=== PATIENT | female | born 1960 | race Caucasian/White ===

== ENCOUNTER → 2016-03-27 | Outpatient (CLI) | payer BC ==
--- NOTE | 2016-03-27 16:49 | US ---
EXAMINATION TYPE: US venous doppler duplex LE LT DATE OF EXAM: 03/27/2016 4:15 PM COMPARISON: NONE CLINICAL HISTORY: L Leg Pain M79.662, R22.42 Ankle Swelling L Leg. redness to left lower leg with iy n x 3 days SIDE PERFORMED: VESSELS IMAGED: Common Femoral Vein Deep Femoral Vein Greater Saphenous Vein * Femoral Vein Popliteal Vein Proximal Calf Veins (* superficial vessels) TECHNOLOGIST IMPRESSION: Left Leg: Negative for DVT. Edema channels are noted at ankle swelling. Tech findings called to Arlene logan at [facility] at exam's end. Satisfactory color flow, phasicity, and compressibility is seen in the left lower extremity at the ab ove levels. Last few images scanning of left ankle show mild to moderate subcutaneous edema. IMPRESSION: No ultrasound evidence for acute DVT in the left lower extremity.
== END | disposition home or self-care (01) ==
LOC: RADUSWWP 15:44
PROVIDERS: ATTEND Internal Medicine
DX: M79.662 Pain in left lower leg (principal); R22.42 Localized swelling, mass and lump, left lower limb

== ENCOUNTER → 2016-10-20 | Outpatient (CLI) | payer BC ==
--- NOTE | 2016-10-20 10:06 | US ---
EXAMINATION TYPE: US venous doppler duplex LE DATE OF EXAM: 10/20/2016 9:36 AM COMPARISON: NONE CLINICAL HISTORY: M79.662 Pain Left M79.661 Pain Right. Non healing wound on left leg, leg swelling a nd pain, no h/o dvt SIDE PERFORMED: Bilateral TECHNIQUE: The lower extremity deep venous system is examined utilizing real time linear array sonog omar with graded compression, doppler sonography and color-flow sonography. VESSELS IMAGED: External Iliac Vein (EIV) Common Femoral Vein Deep Femoral Vein Greater Saphenous Vein * Femoral Vein Popliteal Vein Small Saphenous Vein * Proximal Calf Veins (* superficial vessels) Right Leg: Appears negative for DVT Left Leg: Appears negative for DVT IMPRESSION: 1. No ultrasound evidence deep venous thrombosis bilateral lower extremities.
== END | disposition home or self-care (01) ==
LOC: RADUSWWP 08:57
PROVIDERS: ATTEND Internal Medicine
DX: M79.662 Pain in left lower leg (principal); M79.661 Pain in right lower leg; R22.42 Localized swelling, mass and lump, left lower limb; R22.41 Localized swelling, mass and lump, right lower limb
CPT/HCPCS: 93970

== ENCOUNTER 2017-03-08 15:22 | Inpatient (IN) | payer BC ==
[2017-03-08] MEDS ORDERED: SODIUM CHLORIDE 0.9% 1,000 ML IV ONE (15:37)
--- NOTE | 2017-03-08 15:44 | ED ---
General Adult HPI - General Chief complaint: Altered Mental Status Stated complaint: Alterd Mental State Time Seen by Provider: 03/08/17 15:30 Source: patient, family, RN notes reviewed, old records reviewed Mode of arrival: wheelchair Limitations: altered mental status - History of Present Illness Initial comments: 56-year-old female history of diabetes, congestive heart failure presenting for evaluation of altered mental status, confusion and multiple falls. Patient is accompanied by her states patient fell on Sunday striking the left side of her head, unknown if she lost consciousness or not. Patient was overall in her usual state of health yesterday, today she became more weak, had multiple additional falls. She is complaining of low back pain. The time my evaluation. Patient denies fever or chills. She denies chest pain or shortness of breath. Denies nausea vomiting or diarrhea. She has bilateral lower extremity swelling and erythema which is improved according to the patient. No dysuria. No headache. - Related Data Home Medications Medication Instructions Recorded Confirmed Amitriptyline HCl [Elavil] 100 mg PO HS 12/15/13 03/08/17 Insulin NPH Human Isophane 102 unit SQ HS 12/15/13 03/08/17 [humuLIN N] Nabumetone [Relafen] 500 mg PO BID 12/15/13 03/08/17 metFORMIN HCL [Glucophage] 500 mg PO BID 12/15/13 03/08/17 Cyclobenzaprine [Flexeril] 10 mg PO TID PRN 03/08/17 03/08/17 Diazepam [Valium] 5 - 10 mg PO BID PRN 03/08/17 03/08/17 Empagliflozin/Linagliptin 1 tab PO DAILY 03/08/17 03/08/17 [Glyxambi 10 mg-5 mg Tablet] Enalapril Maleate [Vasotec] 20 mg PO BID 03/08/17 03/08/17 Furosemide [Lasix] 20 mg PO DAILY 03/08/17 03/08/17 Levocetirizine Dihydrochloride 5 mg PO DAILY 03/08/17 03/08/17 Meclizine [Antivert] 6.25 - 12.5 mg PO TID PRN 03/08/17 03/08/17 Nitroglycerin Sl Tabs [Nitrostat] 0.4 mg SUBLINGUAL Q5M PRN 03/08/17 03/08/17 Pantoprazole Sodium [Protonix] 40 mg PO DAILY 03/08/17 03/08/17 Pregabalin [Lyrica] 100 mg PO BID 03/08/17 03/08/17 Zolpidem [Ambien] 10 mg PO HS PRN 03/08/17 03/08/17 traZODone HCL [Desyrel] 100 mg PO HS 03/08/17 03/08/17 Allergies Allergy/AdvReac Type Severity Reaction Status Date / Time No Known Allergies Allergy Verified 03/08/17 16:12 Review of Systems ROS Statement: Those systems with pertinent positive or pertinent negative responses have been documented in the HPI. ROS Other: All systems not noted in ROS Statement are negative. Past Medical History Past Medical History: Heart Failure, Diabetes Mellitus, Hypertension Additional Past Medical History / Comment(s): chronic leg wounds History of Any Multi-Drug Resistant Organisms: None Reported Past Surgical History: Appendectomy, Section, Hernia Repair, Hysterectomy, Orthopedic Surgery, Tubal Ligation Additional Past Surgical History / Comment(s): toe removal Past Anesthesia/Blood Transfusion Reactions: No Reported Reaction Past Psychological History: Anxiety Smoking Status: Current every day smoker Past Alcohol Use History: None Reported Past Drug Use History: None Reported - Past Family History Mother Family Medical History: Diabetes Mellitus Father Family Medical History: Diabetes Mellitus Brother(s) Family Medical History: Cancer, Diabetes Mellitus General Exam Limitations: altered mental status General appearance: alert, in no apparent distress Head exam: Present: normocephalic, other (Abrasion on the left periorbital region) Eye exam: Present: normal appearance, PERRL ENT exam: Present: mucous membranes dry Neck exam: Present: normal inspection. Absent: tenderness, meningismus Respiratory exam: Present: normal lung sounds bilaterally. Absent: respiratory distress Cardiovascular Exam: Present: regular rate, normal rhythm GI/Abdominal exam: Present: soft, distended. Absent: tenderness, guarding, rebound Extremities exam: Present: pedal edema, other (Bilateral chronic venous stasis, 2+ pitting edema) Back exam: Present: tenderness, paraspinal tenderness, vertebral tenderness ( Both paraspinal and vertebral tenderness on the lumbar region.) Neurological exam: Present: alert, oriented X3, CN II-XII intact. Absent: motor sensory deficit Psychiatric exam: Present: normal affect, normal mood Skin exam: Present: warm, dry, intact, normal color. Absent: cyanosis, diaphoretic Course Vital Signs 03/08/17 03/08/17 03/08/17 15:30 16:33 17:00 Temperature 98.5 F 98.7 F Pulse Rate 98 90 94 Respiratory 18 20 18 Rate Blood Pressure 144/79 138/70 139/74 O2 Sat by Pulse 94 L 96 98 Oximetry 03/08/17 18:41 Temperature 97.7 F Pulse Rate 93 Respiratory 20 Rate Blood Pressure 153/91 O2 Sat by Pulse 97 Oximetry EKG Findings - EKG Comments: EKG Findings:: EKG shows normal sinus rhythm, ventricular rate 94, P or 162, QRS duration 84, QTC 475, no ST segment elevation or depression Medical Decision Making - Medical Decision Making 56 female presenting with confusion, multiple falls. Patient does report cough. Chest x-rays obtained, there is a bilateral pneumonia. CT of the brain negative for acute intracranial her ability, CT of C-spine is negative for fracture subluxation, x-ray of the lumbar spine and pelvis are negative. White blood cell count normal 9.6, hemoglobin 13.2. Troponin normal limits. Influenza negative. BNP normal 100. Urinalysis shows 112 RBCs, 74 WBCs, blood culture urine culture are pending. Patient was started on antibiotics for both UTI and bradycardic pneumonia. - Lab Data Result diagrams: 03/08/17 15:45 03/08/17 15:45 Lab Results 03/08/17 03/08/17 03/08/17 Range/Units 15:45 15:45 15:45 WBC 9.6 (3.8-10.6) k/uL RBC 4.26 (3.80-5.40) m/uL Hgb 13.2 (11.4-16.0) gm/dL Hct 40.6 (34.0-46.0) % MCV 95.4 (80.0-100.0) fL MCH 31.1 (25.0-35.0) pg MCHC 32.5 (31.0-37.0) g/dL RDW 15.6 H (11.5-15.5) % Plt Count 313 (150-450) k/uL Neutrophils % 70 % Lymphocytes % 20 % Monocytes % 6 % Eosinophils % 2 % Basophils % 0 % Neutrophils # 6.7 (1.3-7.7) k/uL Lymphocytes # 1.9 (1.0-4.8) k/uL Monocytes # 0.5 (0-1.0) k/uL Eosinophils # 0.2 (0-0.7) k/uL Basophils # 0.0 (0-0.2) k/uL PT (9.0-12.0) sec INR (<1.2) APTT (22.0-30.0) sec Sodium 140 (137-145) mmol/L Potassium 3.6 (3.5-5.1) mmol/L Chloride 99 (98-107) mmol/L Carbon Dioxide 28 (22-30) mmol/L Anion Gap 13 mmol/L BUN 22 H (7-17) mg/dL Creatinine 0.54 (0.52-1.04) mg/dL Est GFR (MDRD) Af Amer >60 (>60 ml/min/1.73 sqM) Est GFR (MDRD) Non-Af >60 (>60 ml/min/1.73 sqM) Glucose 134 H (74-99) mg/dL POC Glucose (mg/dL) (75-99) mg/dL POC Glu Tightener ID Plasma Lactic Acid Tyrell (0.7-2.0) mmol/L Calcium 9.7 (8.4-10.2) mg/dL Total Bilirubin 0.4 (0.2-1.3) mg/dL AST 67 H (14-36) U/L ALT 40 (9-52) U/L Alkaline Phosphatase 126 (38-126) U/L Total Creatine Kinase 1001 H (30-135) U/L CK-MB (CK-2) 35.0 H* (0.0-2.4) ng/mL CK-MB (CK-2) Rel Index 3.5 Troponin I <0.012 (0.000-0.034) ng/mL NT-Pro-B Natriuret Pep pg/mL Total Protein 7.5 (6.3-8.2) g/dL Albumin 4.0 (3.5-5.0) g/dL Urine Color Urine Appearance (Clear) Urine pH (5.0-8.0) Ur Specific Jefferson (1.001-1.035) Urine Protein (Negative) Urine Glucose (UA) (Negative) Urine Ketones (Negative) Urine Blood (Negative) Urine Nitrite (Negative) Urine Bilirubin (Negative) Urine Urobilinogen (<2.0) mg/dL Ur Leukocyte Esterase (Negative) Urine RBC (0-5) /hpf Urine WBC (0-5) /hpf Urine WBC Clumps (None) /hpf Ur Renal Epithelial Cell (0) /hpf Urine Bacteria (None) /hpf Urine Mucus (None) /hpf Urine Yeast (Budding) (None) /hpf Urine Opiates Screen (NotDetected) Ur Oxycodone Screen (NotDetected) Urine Methadone Screen (NotDetected) Ur Propoxyphene Screen (NotDetected) Ur Barbiturates Screen (NotDetected) U Tricyclic Antidepress (NotDetected) Ur Phencyclidine Scrn (NotDetected) Ur Amphetamines Screen (NotDetected) U Methamphetamines Scrn (NotDetected) U Benzodiazepines Scrn (NotDetected) Urine Cocaine Screen (NotDetected) U Marijuana (THC) Screen (NotDetected) Influenza Type A RNA (Not Detectd) Influenza Type B (PCR) (Not Detectd) 03/08/17 03/08/17 03/08/17 Range/Units 15:45 15:45 15:45 WBC (3.8-10.6) k/uL RBC (3.80-5.40) m/uL Hgb (11.4-16.0) gm/dL Hct (34.0-46.0) % MCV (80.0-100.0) fL MCH (25.0-35.0) pg MCHC (31.0-37.0) g/dL RDW (11.5-15.5) % Plt Count (150-450) k/uL Neutrophils % % Lymphocytes % % Monocytes % % Eosinophils % % Basophils % % Neutrophils # (1.3-7.7) k/uL Lymphocytes # (1.0-4.8) k/uL Monocytes # (0-1.0) k/uL Eosinophils # (0-0.7) k/uL Basophils # (0-0.2) k/uL PT 10.5 (9.0-12.0) sec INR 1.1 (<1.2) APTT 23.5 (22.0-30.0) sec Sodium (137-145) mmol/L Potassium (3.5-5.1) mmol/L Chloride (98-107) mmol/L Carbon Dioxide (22-30) mmol/L Anion Gap mmol/L BUN (7-17) mg/dL Creatinine (0.52-1.04) mg/dL Est GFR (MDRD) Af Amer (>60 ml/min/1.73 sqM) Est GFR (MDRD) Non-Af (>60 ml/min/1.73 sqM) Glucose (74-99) mg/dL POC Glucose (mg/dL) (75-99) mg/dL POC Glu Tightener ID Plasma Lactic Acid Tyrell 1.2 (0.7-2.0) mmol/L Calcium (8.4-10.2) mg/dL Total Bilirubin (0.2-1.3) mg/dL AST (14-36) U/L ALT (9-52) U/L Alkaline Phosphatase (38-126) U/L Total Creatine Kinase (30-135) U/L CK-MB (CK-2) (0.0-2.4) ng/mL CK-MB (CK-2) Rel Index Troponin I (0.000-0.034) ng/mL NT-Pro-B Natriuret Pep pg/mL Total Protein (6.3-8.2) g/dL Albumin (3.5-5.0) g/dL Urine Color Urine Appearance (Clear) Urine pH (5.0-8.0) Ur Specific Jefferson (1.001-1.035) Urine Protein (Negative) Urine Glucose (UA) (Negative) Urine Ketones (Negative) Urine Blood (Negative) Urine Nitrite (Negative) Urine Bilirubin (Negative) Urine Urobilinogen (<2.0) mg/dL Ur Leukocyte Esterase (Negative) Urine RBC (0-5) /hpf Urine WBC (0-5) /hpf Urine WBC Clumps (None) /hpf Ur Renal Epithelial Cell (0) /hpf Urine Bacteria (None) /hpf Urine Mucus (None) /hpf Urine Yeast (Budding) (None) /hpf Urine Opiates Screen (NotDetected) Ur Oxycodone Screen (NotDetected) Urine Methadone Screen (NotDetected) Ur Propoxyphene Screen (NotDetected) Ur Barbiturates Screen (NotDetected) U Tricyclic Antidepress (NotDetected) Ur Phencyclidine Scrn (NotDetected) Ur Amphetamines Screen (NotDetected) U Methamphetamines Scrn (NotDetected) U Benzodiazepines Scrn (NotDetected) Urine Cocaine Screen (NotDetected) U Marijuana (THC) Screen (NotDetected) Influenza Type A RNA Not Detected (Not Detectd) Influenza Type B (PCR) Not Detected (Not Detectd) 03/08/17 03/08/17 03/08/17 Range/Units 15:45 15:51 16:30 WBC (3.8-10.6) k/uL RBC (3.80-5.40) m/uL Hgb (11.4-16.0) gm/dL Hct (34.0-46.0) % MCV (80.0-100.0) fL MCH (25.0-35.0) pg MCHC (31.0-37.0) g/dL RDW (11.5-15.5) % Plt Count (150-450) k/uL Neutrophils % % Lymphocytes % % Monocytes % % Eosinophils % % Basophils % % Neutrophils # (1.3-7.7) k/uL Lymphocytes # (1.0-4.8) k/uL Monocytes # (0-1.0) k/uL Eosinophils # (0-0.7) k/uL Basophils # (0-0.2) k/uL PT (9.0-12.0) sec INR (<1.2) APTT (22.0-30.0) sec Sodium (137-145) mmol/L Potassium (3.5-5.1) mmol/L Chloride (98-107) mmol/L Carbon Dioxide (22-30) mmol/L Anion Gap mmol/L BUN (7-17) mg/dL Creatinine (0.52-1.04) mg/dL Est GFR (MDRD) Af Amer (>60 ml/min/1.73 sqM) Est GFR (MDRD) Non-Af (>60 ml/min/1.73 sqM) Glucose (74-99) mg/dL POC Glucose (mg/dL) 145 H (75-99) mg/dL POC Glu Tightener ID Henrietta Ascencio Plasma Lactic Acid Tyrell (0.7-2.0) mmol/L Calcium (8.4-10.2) mg/dL Total Bilirubin (0.2-1.3) mg/dL AST (14-36) U/L ALT (9-52) U/L Alkaline Phosphatase (38-126) U/L Total Creatine Kinase (30-135) U/L CK-MB (CK-2) (0.0-2.4) ng/mL CK-MB (CK-2) Rel Index Troponin I (0.000-0.034) ng/mL NT-Pro-B Natriuret Pep 100 pg/mL Total Protein (6.3-8.2) g/dL Albumin (3.5-5.0) g/dL Urine Color Yellow Urine Appearance Turbid H (Clear) Urine pH 5.0 (5.0-8.0) Ur Specific Jefferson 1.014 (1.001-1.035) Urine Protein 1+ H (Negative) Urine Glucose (UA) 4+ H (Negative) Urine Ketones Trace H (Negative) Urine Blood Small H (Negative) Urine Nitrite Negative (Negative) Urine Bilirubin Negative (Negative) Urine Urobilinogen <2.0 (<2.0) mg/dL Ur Leukocyte Esterase Large H (Negative) Urine RBC 112 H (0-5) /hpf Urine WBC 74 H (0-5) /hpf Urine WBC Clumps Many H (None) /hpf Ur Renal Epithelial Cell 394 (0) /hpf Urine Bacteria Many H (None) /hpf Urine Mucus Many H (None) /hpf Urine Yeast (Budding) Many H (None) /hpf Urine Opiates Screen Not Detected (NotDetected) Ur Oxycodone Screen Not Detected (NotDetected) Urine Methadone Screen Not Detected (NotDetected) Ur Propoxyphene Screen Not Detected (NotDetected) Ur Barbiturates Screen Not Detected (NotDetected) U Tricyclic Antidepress Detected H (NotDetected) Ur Phencyclidine Scrn Not Detected (NotDetected) Ur Amphetamines Screen Not Detected (NotDetected) U Methamphetamines Scrn Not Detected (NotDetected) U Benzodiazepines Scrn Detected H (NotDetected) Urine Cocaine Screen Not Detected (NotDetected) U Marijuana (THC) Screen Not Detected (NotDetected) Influenza Type A RNA (Not Detectd) Influenza Type B (PCR) (Not Detectd) Disposition Clinical Impression: Community acquired pneumonia, UTI (urinary tract infection), Altered mental status Disposition: ADMITTED IP TO THIS [facility] Condition: Stable Referrals: Jad John MD [Primary Care Provider] - 1-2 days Decision to Admit Reason: Admit from EC Decision Date: 03/08/17 Decision Time: 19:18
[2017-03-08] MEDS ORDERED: SODIUM CHLORIDE 0.9% 250 ML IV ONE (15:45)
[2017-03-08 15:52] LABS: Glucose,Whole Blood 145 mg/dL (75-99)
[2017-03-08 16:04] LABS: Basophils % (A) 0 %; Eosinophils # (A) 0.2 k/uL (0-0.7); Eosinophils % (A) 2 %; HCT 40.6 % (34.0-46.0); HGB 13.2 gm/dL (11.4-16.0); Lymphocytes # (A) 1.9 k/uL (1.0-4.8); Lymphocytes % (A) 20 %; MCH 31.1 pg (25.0-35.0); MCHC 32.5 g/dL (31.0-37.0); MCV 95.4 fL (80.0-100.0); Mean Platelet Volume 7.3; Monocytes # (A) 0.5 k/uL (0-1.0); Monocytes % (A) 6 %; Neutrophils # (A) 6.7 k/uL (1.3-7.7); Neutrophils % (A) 70 %; Platelet Count 313 k/uL (150-450); RBC 4.26 m/uL (3.80-5.40); RDW 15.6 % (11.5-15.5); WBC 9.6 k/uL (3.8-10.6)
[2017-03-08 16:13] LABS: INR 1.1 (<1.2); Partial Thromboplastin Time 23.5 sec (22.0-30.0); Prothrombin Time 10.5 sec (9.0-12.0)
[2017-03-08 16:16] LABS: ALT 40 U/L (9-52); AST 67 U/L (14-36); Alkaline Phosphatase 126 U/L (38-126); Anion Gap 13 mmol/L; Blood Urea Nitrogen 22 mg/dL (7-17); Calcium 9.7 mg/dL (8.4-10.2); Carbon Dioxide 28 mmol/L (22-30); Chloride 99 mmol/L (98-107); Glucose 134 mg/dL (74-99); Potassium 3.6 mmol/L (3.5-5.1); Sodium 140 mmol/L (137-145); Total Bilirubin 0.4 mg/dL (0.2-1.3); Total Protein 7.5 g/dL (6.3-8.2)
--- NOTE | 2017-03-08 16:17 | XR ---
EXAMINATION TYPE: XR chest 2V DATE OF EXAM: 03/08/2017 COMPARISON: 05/23/2014 HISTORY: Shortness of breath TECHNIQUE: Frontal and lateral views of the chest are obtained. FINDINGS: Scattered senescent parenchymal changes noted. Patchy perihilar infiltrates right greater than left which may reflect bilateral pneumonia. Acute pul monary edema is less likely although not entirely excluded. Correlate clinically. Heart size is stable. Mediastinal structures are stable and grossly unremarkable. No evidence for hilar prominence. Degenerative changes dorsal spine. IMPRESSION: 1. Patchy perihilar infiltrates right greater than left which may reflect bilateral pneumonia. Acute pulmonary edema is less likely although not entirely excluded. Correlate clinically.
--- NOTE | 2017-03-08 16:20 | XR ---
EXAMINATION TYPE: XR lumbar spine 2 or 3V, XR pelvis AP view DATE OF EXAM: 03/08/2017 CLINICAL HISTORY: pain TECHNIQUE: Three views of the lumbar spine are submitted. COMPARISON: None. FINDINGS: There are 5 lumbar type vertebral bodies identified. The lumbar spine shows satisfactory alignment w ithout evidence of acute fracture or dislocation. Vertebral body heights are within normal limits. Moderate degenerative narrowing at L3-4 and to a lesser extent L4-5 and L5-S1. Retrolisthesis of L3 o n L4 measuring 5 mm. Moderate lower lumbar facet joint arthropathy. The overlying soft tissue appear s unremarkable. IMPRESSION: No acute fracture is seen in the lumbar spine. Retrolisthesis L3 on L4. ICD 10 NO FRACTURE, INITIAL EVALUATION EXAMINATION TYPE: XR lumbar spine 2 or 3V, XR pelvis AP view DATE OF EXAM: 03/08/2017 CLINICAL HISTORY: pain TECHNIQUE: Single view the pelvis is submitted. FINDINGS: No evidence for fracture, dislocation or bony lesion. Joint spaces are well-preserved. S I joints appear symmetric. IMPRESSION: 1. No acute fracture or dislocation seen. ICD 10 NO FRACTURE, INITIAL EVALUATION
[2017-03-08 16:21] LABS: Creatine Kinase 1001 U/L (30-135)
[2017-03-08 16:33] LABS: Troponin I <0.012 ng/mL (0.000-0.034)
[2017-03-08] MEDS: SODIUM CHLORIDE 0.9% 250 ML IV SCH ×9 (16:46→23:07)
[2017-03-08 16:47] LABS: Appearance,Urine Turbid (Clear); Bacteria,Urine Many /hpf; Bilirubin,Urine Negative (Negative); Blood,Urine Small (Negative); Budding Yeast,Urine Many /hpf; Color,Urine Yellow; Glucose,Urine (UA) 4+ (Negative); Ketones,Urine Trace (Negative); Leukocyte Esterase,Urine Large (Negative); Mucus,Urine Many /hpf; Nitrite,Urine Negative (Negative); Protein,Urine 1+ (Negative); RBC,Urine 112 /hpf (0-5); Renal Epithelial Cells,Urine 394 /hpf (0); Specific Gravity,Urine 1.014 (1.001-1.035); Urobilinogen,Urine <2.0 mg/dL (<2.0); WBC,Urine 74 /hpf (0-5)
[2017-03-08 17:15] LABS: Amphetamine Screen,Urine Not Detected (NotDetected); Barbiturate Screen,Urine Not Detected (NotDetected); Benzodiazepines Screen,Urine Detected (NotDetected); Cocaine Screen,Urine Not Detected (NotDetected); Methadone Screen, Urine Not Detected (NotDetected); Opiate Screen,Urine Not Detected (NotDetected); Oxycodone Screen, Urine Not Detected (NotDetected); Phencyclidine Screen,Urine Not Detected (NotDetected); Tricyclic Antidepressant,Urine Detected (NotDetected); Urn Cannabinoid Scrn Not Detected (NotDetected)
--- NOTE | 2017-03-08 18:10 | CT ---
EXAMINATION TYPE: CT brain [facility] DATE OF EXAM: 03/08/2017 COMPARISON: Brain CT 12/15/2013 HISTORY: Per patient family multiple falls and mental status changes CT DLP: 1792.9 mGycm Automated exposure control for dose reduction was used. TECHNIQUE: CT scan of the head and cervical spine are performed without contrast. FINDINGS: Ventricles have normal size. There is no mass effect nor midline shift. There is no sign of intracranial hemorrhage. The calvarium is intact. There is mucosal thickening in the paranasal sin uses and more noticeable in the sphenoid sinuses. There is some straightening of the cervical spine. There is moderate narrowing at C5-6 disc space wit h some spurring of the endplates. There is multilevel hypertrophic cervical facet arthropathy. The sk ull base is intact. I see no fracture. I see no focal bony destructive process. IMPRESSION: There is pansinusitis similar to old exam. No acute intracranial abnormality. Spondylotic changes in the cervical spine and more noticeable at C5-6. No fracture.
[2017-03-08] MEDS ORDERED: AZITHROMYCIN 500 MG in SODIUM CHLORIDE 0.9% 250 ML IVPB STA (18:27)
[2017-03-08] MEDS ORDERED: cefTRIAXone IN SWFI 1,000 MG/10 ML SYRINGE IVP STA (18:28)
[2017-03-08] MEDS ORDERED: HYDROcodone/APAP 5-325MG 1 EACH TAB PO STA (19:00)
[2017-03-08] MEDS ORDERED: NALOXONE 0.4 MG/ML 1 ML VIAL IV PRN (19:14)
[2017-03-08] MEDS ORDERED: ACETAMINOPHEN TAB 325 MG TAB PO PRN (19:14)
[2017-03-08] MEDS ORDERED: IBUPROFEN 400 MG TAB PO PRN (19:14)
[2017-03-08] MEDS ORDERED: SODIUM CHLORIDE 0.9% 1,000 ML IV SCH (20:15)
[2017-03-08 22:06] LABS: Glucose,Whole Blood 131 mg/dL (75-99)
[2017-03-08] MEDS: LISINOPRIL 20 MG TAB PO SCH (22:54)
[2017-03-08] MEDS: metFORMIN 500 MG TAB PO SCH (22:55)
[2017-03-09] MEDS: HYDROmorphone 0.5 MG/0.5 ML SYRINGE IVP PRN ×2 (02:36→06:00)
[2017-03-09 08:00] LABS: Glucose,Whole Blood 127 mg/dL (75-99)
[2017-03-09] MEDS: cefTRIAXone IN SWFI 1,000 MG/10 ML SYRINGE IVP SCH (08:09)
[2017-03-09] MEDS: metFORMIN 500 MG TAB PO SCH (08:09)
[2017-03-09] MEDS: LISINOPRIL 20 MG TAB PO SCH (08:09)
[2017-03-09] MEDS ORDERED: NITROGLYCERIN SL TABS 0.4 MG TAB SUBLINGUAL PRN (08:26)
[2017-03-09] MEDS ORDERED: DIAZEPAM 5 MG TAB PO PRN (08:26)
--- NOTE | 2017-03-09 08:53 | P.HPIM ---
History of Present Illness Patient is 56-year-old female came in with the falls generalized weakness and a pO2 be multifactorial. Patient is complaining of cough denied without any significant sputum production any fever chills doesn't have any leukocytosis incidentally found to have infiltrate in the right middle and lower lung li. The denied any dysuria urinary frequency suprapubic pain abdominal pain. Patient has bilateral pedal edema chronic venous stasis dermatitis at this without any cellulitis patient was started on Rocephin and azithromycin admitted. Patient is on multiple medications that can lead to falls including trazodone and Ambien and diazepam cyclobenzaprine. Patient was told she has congestive heart failure although previous echocardiogram from 2014 showed normal ejection fraction patient is hypotensive as well. We'll repeat an echocardiogram patient will be continued on antibiotics IV fluids will be discontinued with concern of her heart failure history may have diastolic dysfunction although her EF is essentially within normal limits as mentioned above. Physical therapy and occupational therapy evaluation I cannot disprove pneumonia at this time because of which I'm continuing antibiotics. Review of Systems REVIEW OF SYSTEMS: CONSTITUTIONAL: As mentioned in HPI HEENT: No recent visual problems or hearing problems. Denied any sore throat. CARDIOVASCULAR: No chest pain, orthopnea, PND, no palpitations, no syncope. PULMONARY: No shortness of breath, no cough, no hemoptysis. GASTROINTESTINAL: No diarrhea, no nausea, no vomiting, no abdominal pain. Normoactive bowel sounds. NEUROLOGICAL: No headaches, no weakness, no numbness. HEMATOLOGICAL: Denies any bleeding or petechiae. GENITOURINARY: Denies any burning micturition, frequency, or urgency. MUSCULOSKELETAL/RHEUMATOLOGICAL: Denies any joint pain, swelling, or any muscle pain. ENDOCRINE: Denies any polyuria or polydipsia. The rest of the 14-point review of systems is negative. Past Medical History Past Medical History: Heart Failure, Diabetes Mellitus, Hypertension Additional Past Medical History / Comment(s): chronic leg wounds History of Any Multi-Drug Resistant Organisms: None Reported Past Surgical History: Appendectomy, Section, Hernia Repair, Hysterectomy, Orthopedic Surgery, Tubal Ligation Additional Past Surgical History / Comment(s): right third toe removal; shoulder repain surgery Past Anesthesia/Blood Transfusion Reactions: No Reported Reaction Past Psychological History: Anxiety Smoking Status: Current every day smoker Past Alcohol Use History: None Reported Past Drug Use History: None Reported - Past Family History Mother Family Medical History: Diabetes Mellitus Father Family Medical History: Diabetes Mellitus Brother(s) Family Medical History: Cancer, Diabetes Mellitus Medications and Allergies Home Medications Medication Instructions Recorded Confirmed Type Amitriptyline HCl [Elavil] 100 mg PO HS 12/15/13 03/08/17 History Insulin NPH Human Isophane 102 unit SQ HS 12/15/13 03/08/17 History [humuLIN N] Nabumetone [Relafen] 500 mg PO BID 12/15/13 03/08/17 History metFORMIN HCL [Glucophage] 500 mg PO BID 12/15/13 03/08/17 History Cyclobenzaprine [Flexeril] 10 mg PO TID PRN 03/08/17 03/08/17 History Diazepam [Valium] 5 - 10 mg PO BID PRN 03/08/17 03/08/17 History Empagliflozin/Linagliptin 1 tab PO DAILY 03/08/17 03/08/17 History [Glyxambi 10 mg-5 mg Tablet] Enalapril Maleate [Vasotec] 20 mg PO BID 03/08/17 03/08/17 History Furosemide [Lasix] 20 mg PO DAILY 03/08/17 03/08/17 History Levocetirizine Dihydrochloride 5 mg PO DAILY 03/08/17 03/08/17 History Meclizine [Antivert] 6.25 - 12.5 mg PO TID PRN 03/08/17 03/08/17 History Nitroglycerin Sl Tabs [Nitrostat] 0.4 mg SUBLINGUAL Q5M PRN 03/08/17 03/08/17 History Pantoprazole Sodium [Protonix] 40 mg PO DAILY 03/08/17 03/08/17 History Pregabalin [Lyrica] 100 mg PO BID 03/08/17 03/08/17 History Zolpidem [Ambien] 10 mg PO HS PRN 03/08/17 03/08/17 History traZODone HCL [Desyrel] 100 mg PO HS 03/08/17 03/08/17 History Allergies Allergy/AdvReac Type Severity Reaction Status Date / Time No Known Allergies Allergy Verified 03/08/17 16:12 Physical Exam Vitals: Vital Signs Temp Pulse Pulse Resp BP BP BP 03/09/17 07:00 98.6 F 89 18 112/62 03/09/17 00:30 98.1 F 89 20 97/55 03/08/17 21:00 98.5 F 86 20 112/72 03/08/17 20:16 98.9 F 90 16 137/70 03/08/17 19:28 97 20 131/70 03/08/17 18:41 97.7 F 93 20 153/91 03/08/17 17:00 94 18 139/74 03/08/17 16:33 98.7 F 90 20 138/70 03/08/17 15:30 98.5 F 98 18 144/79 Pulse Ox 03/09/17 07:00 95 03/09/17 00:30 94 L 03/08/17 21:00 93 L 03/08/17 20:16 03/08/17 19:28 97 03/08/17 18:41 97 03/08/17 17:00 98 03/08/17 16:33 96 03/08/17 15:30 94 L Intake and Output 03/08/17 03/09/17 03/09/17 22:59 06:59 14:59 Intake Total 200 100 Balance 200 100 Intake: Oral 200 100 Other: Voiding Method Bedpan Incontinent # Voids 1 3 # Bowel Movements 0 0 Weight 100.698 kg PHYSICAL EXAMINATION: GENERAL: The patient is alert and oriented x3, not in any acute distress. Well developed, well nourished. HEENT: Pupils are round and equally reacting to light. EOMI. No scleral icterus. No conjunctival pallor. Normocephalic, atraumatic. No pharyngeal erythema. No thyromegaly. CARDIOVASCULAR: S1 and S2 present. No murmurs, rubs, or gallops. PULMONARY: Chest is clear to auscultation, no wheezing or crackles. ABDOMEN: Soft, nontender, nondistended, normoactive bowel sounds. No palpable organomegaly. MUSCULOSKELETAL: No joint swelling or deformity. EXTREMITIES: No cyanosis, clubbing, or pedal edema. NEUROLOGICAL: Gross neurological examination did not reveal any focal deficits. SKIN: Patient has bilateral lower extremity venous stasis dermatosis and edema Results CBC & Chem 7: 03/08/17 15:45 03/08/17 15:45 Labs: Abnormal Lab Results - Last 24 Hours (Table) 03/08/17 03/08/17 03/08/17 Range/Units 15:45 15:45 15:45 RDW 15.6 H (11.5-15.5) % BUN 22 H (7-17) mg/dL Glucose 134 H (74-99) mg/dL POC Glucose (mg/dL) (75-99) mg/dL AST 67 H (14-36) U/L Total Creatine Kinase 1001 H (30-135) U/L CK-MB (CK-2) 35.0 H* (0.0-2.4) ng/mL Urine Appearance (Clear) Urine Protein (Negative) Urine Glucose (UA) (Negative) Urine Ketones (Negative) Urine Blood (Negative) Ur Leukocyte Esterase (Negative) Urine RBC (0-5) /hpf Urine WBC (0-5) /hpf Urine WBC Clumps (None) /hpf Urine Bacteria (None) /hpf Urine Mucus (None) /hpf Urine Yeast (Budding) (None) /hpf U Tricyclic Antidepress (NotDetected) U Benzodiazepines Scrn (NotDetected) 03/08/17 03/08/17 03/08/17 Range/Units 15:51 16:30 21:52 RDW (11.5-15.5) % BUN (7-17) mg/dL Glucose (74-99) mg/dL POC Glucose (mg/dL) 145 H 131 H (75-99) mg/dL AST (14-36) U/L Total Creatine Kinase (30-135) U/L CK-MB (CK-2) (0.0-2.4) ng/mL Urine Appearance Turbid H (Clear) Urine Protein 1+ H (Negative) Urine Glucose (UA) 4+ H (Negative) Urine Ketones Trace H (Negative) Urine Blood Small H (Negative) Ur Leukocyte Esterase Large H (Negative) Urine RBC 112 H (0-5) /hpf Urine WBC 74 H (0-5) /hpf Urine WBC Clumps Many H (None) /hpf Urine Bacteria Many H (None) /hpf Urine Mucus Many H (None) /hpf Urine Yeast (Budding) Many H (None) /hpf U Tricyclic Antidepress Detected H (NotDetected) U Benzodiazepines Scrn Detected H (NotDetected) 01/19/18 Range/Units 07:28 RDW (11.5-15.5) % BUN (7-17) mg/dL Glucose (74-99) mg/dL POC Glucose (mg/dL) 127 H (75-99) mg/dL AST (14-36) U/L Total Creatine Kinase (30-135) U/L CK-MB (CK-2) (0.0-2.4) ng/mL Urine Appearance (Clear) Urine Protein (Negative) Urine Glucose (UA) (Negative) Urine Ketones (Negative) Urine Blood (Negative) Ur Leukocyte Esterase (Negative) Urine RBC (0-5) /hpf Urine WBC (0-5) /hpf Urine WBC Clumps (None) /hpf Urine Bacteria (None) /hpf Urine Mucus (None) /hpf Urine Yeast (Budding) (None) /hpf U Tricyclic Antidepress (NotDetected) U Benzodiazepines Scrn (NotDetected) Microbiology - Last 24 Hours (Table) 03/08/17 16:30 Urine Culture - Preliminary Urine,Catheterized Thrombosis Risk Factor Assmnt - Choose All That Apply Any of the Below Risk Factors Present?: Yes Each Factor Represents 1 point: Age 41-60 years, Heart failure (<1month), Medical pt on bed rest, Obesity (BMI >25), Serious lung disease incl. pneumonia (< 1month), Swollen legs (current) Other Risk Factors: Yes Each Risk Factor Represents 3 Points: Family history of DVT/PE, History of DVT/ PE Thrombosis Risk Factor Assessment Total Risk Factor Score: 12 Thrombosis Risk Factor Assessment Level: High Risk Assessment and Plan Plan: -Falls: Multifactorial probably due to hypotension medications and possibility of pneumonia contributing to that my suspicion for urinary tract infection is extremely low anyways patient is on Rocephin and azithromycin which will be continued -Hypotension secondary to medications that is lisinopril and Lasix will be held and will obtain echocardiogram. -History of congestive heart failure had previous ejection fraction from 2014 is essentially within normal limits patient is hypovolemic because of which diuretic therapy is being held. -Chronic low back pain -Possibility of right middle and lower lobe pneumonia above-mentioned antibiotics will be continued. -Asymptomatic bacteriuria my suspicion is extremely low for urinary tract infection -Generalized deconditioning and falls: PT and OT consultation -Type 2 diabetes mellitus: Continue with sliding scale insulin.
[2017-03-09 09:12] LABS: Basophils % (A) 0 %; Eosinophils # (A) 0.2 k/uL (0-0.7); Eosinophils % (A) 3 %; HGB 11.8 gm/dL (11.4-16.0); Lymphocytes # (A) 1.9 k/uL (1.0-4.8); Lymphocytes % (A) 27 %; MCH 30.7 pg (25.0-35.0); MCHC 31.8 g/dL (31.0-37.0); MCV 96.5 fL (80.0-100.0); Mean Platelet Volume 7.1; Monocytes # (A) 0.5 k/uL (0-1.0); Monocytes % (A) 7 %; Neutrophils # (A) 4.2 k/uL (1.3-7.7); Neutrophils % (A) 60 %; Platelet Count 276 k/uL (150-450); RBC 3.84 m/uL (3.80-5.40); RDW 14.6 % (11.5-15.5); WBC 6.9 k/uL (3.8-10.6)
[2017-03-09 09:17] LABS: ALT 38 U/L (9-52); AST 44 U/L (14-36); Albumin 3.3 g/dL (3.5-5.0); Alkaline Phosphatase 101 U/L (38-126); Anion Gap 10 mmol/L; Blood Urea Nitrogen 22 mg/dL (7-17); Calcium 8.8 mg/dL (8.4-10.2); Carbon Dioxide 27 mmol/L (22-30); Chloride 103 mmol/L (98-107); Glucose 131 mg/dL (74-99); Sodium 140 mmol/L (137-145); Total Bilirubin 0.4 mg/dL (0.2-1.3); Total Protein 6.4 g/dL (6.3-8.2)
[2017-03-09] MEDS: HYDROcodone/APAP 5-325MG 1 EACH TAB PO PRN ×3 (09:46→22:46)
[2017-03-09] MEDS: PANTOPRAZOLE 40 MG TABLET PO SCH (09:47)
[2017-03-09] MEDS: PREGABALIN 100 MG CAP PO SCH ×2 (09:49→22:47)
[2017-03-09 11:32] LABS: Glucose,Whole Blood 148 mg/dL (75-99)
[2017-03-09] MEDS: INSULIN ASPART 100 UNIT/ML 1 ML 10 ML VIAL SQ SCH ×3 (11:54→23:02)
[2017-03-09 18:07] LABS: Glucose,Whole Blood 207 mg/dL (75-99)
[2017-03-09] MEDS ORDERED: AZITHROMYCIN 500 MG in SODIUM CHLORIDE 0.9% 250 ML IVPB SCH (19:00)
[2017-03-09 19:02] LABS: Hemoglobin A1C 7.2 % (4.0-6.0)
[2017-03-09 21:13] LABS: Glucose,Whole Blood 190 mg/dL (75-99)
[2017-03-09] MEDS ORDERED: ZOLPIDEM 10 MG TAB PO PRN (22:11)
[2017-03-09] MEDS: INSULIN NPH 300 UNIT/3 ML VIAL SQ SCH (22:48)
[2017-03-09] MEDS: AMITRIPTYLINE HCL 50 MG TAB PO SCH (22:48)
[2017-03-10] MEDS: HYDROcodone/APAP 5-325MG 1 EACH TAB PO PRN ×4 (06:12→22:53)
[2017-03-10 07:27] LABS: Glucose,Whole Blood 100 mg/dL (75-99)
[2017-03-10] MEDS: INSULIN ASPART 100 UNIT/ML 1 ML 10 ML VIAL SQ SCH ×4 (07:28→22:58)
[2017-03-10] MEDS: PANTOPRAZOLE 40 MG TABLET PO SCH (08:36)
[2017-03-10] MEDS: PREGABALIN 100 MG CAP PO SCH ×2 (08:36→22:53)
[2017-03-10] MEDS: cefTRIAXone IN SWFI 1,000 MG/10 ML SYRINGE IVP SCH (11:02)
[2017-03-10 11:46] LABS: Glucose,Whole Blood 87 mg/dL (75-99)
[2017-03-10 17:13] LABS: Glucose,Whole Blood 71 mg/dL (75-99)
[2017-03-10] MEDS ORDERED: AZITHROMYCIN 500 MG TAB PO SCH (19:00)
[2017-03-10 21:17] LABS: Glucose,Whole Blood 153 mg/dL (75-99)
[2017-03-10] MEDS: AMITRIPTYLINE HCL 50 MG TAB PO SCH (22:52)
[2017-03-10] MEDS: INSULIN NPH 300 UNIT/3 ML VIAL SQ SCH (22:54)
[2017-03-11] MEDS: HYDROcodone/APAP 5-325MG 1 EACH TAB PO PRN ×3 (03:02→14:16)
[2017-03-11] MEDS: INSULIN ASPART 100 UNIT/ML 1 ML 10 ML VIAL SQ SCH ×2 (07:24→11:51)
--- NOTE | 2017-03-11 07:32 | PN ---
PROGRESS NOTE DATE OF SERVICE: 03/10/2017 This 56-year-old woman who was admitted with multiple falls, also had hypotension. The patient also has had suspicion of pneumonia with patchy perihilar infiltrates, right greater than left, and the patient is being closely monitored at this time. White count is normal. The creatine kinase is also indicating rhabdomyolysis. UA showed UTI. Influenza is negative. The urine culture showed lactobacillus seizures at this time. PAST MEDICAL HISTORY: Reviewed. REVIEW OF SYSTEMS: CARDIOVASCULAR: No angina. RESPIRATORY: As mentioned earlier. GI: No nausea. : No dysuria. NERVOUS SYSTEM: As mentioned earlier. CURRENT MEDICATIONS: Reviewed and include: 1. Tylenol 650 q.6 p.r.n. 2. [place] 5 mg q.4h. 3. Elavil 100 mg q.h.s. 4. Zithromax 500 mg daily. 5. Rocephin 1 g daily. 6. Valium 5 mg b.i.d. p.r.n. 7. Motrin. 8. NovoLog. 9. Narcan. 10.Protonix. 11.Lyrica. 12.Ambien. PHYSICAL EXAM: Patient is alert, oriented x2. Pulse 83, blood pressure 160/83, respiration 18, temperature 97.6, pulse ox 94% room air. HEENT: Conjunctivae normal. Oral mucosa moist. NECK: No jugular venous distention. CARDIOVASCULAR: S1, S2. RESPIRATORY: Breath sounds diminished in the bases. A few scattered rhonchi and crackles. ABDOMEN: Soft, nontender. No mass palpable. LEGS: No edema, no swelling. NERVOUS SYSTEM: Higher functions as mentioned earlier. Moves all four limbs. No focal deficits. LYMPHATIC: No lymphadenopathy in the neck or axillae. SKIN: No ulcer, rash or bleeding. LABS: At this time shows CBC within normal limits otherwise glucose noted and BUN is 22, CK is 1001, albumin 3.3. ASSESSMENT: 1. Change in mental status, metabolic encephalopathy, multifactorial, possibly secondary to sepsis. 2. Possible bilateral perihilar pneumonia with sepsis. 3. Acute urinary tract infection. 4. Increased creatine kinase with mild rhabdomyolysis. 5. History of congestive heart failure. 6. Diabetes mellitus type 2. 7. Hypertension. 8. Chronic leg wounds. 9. Hernia surgery. 10.History of anxiety. 11.Continued history of nicotine dependence. 12.History of falls. 13.Gait dysfunction. 14.Congestive heart failure with chronic diastolic dysfunction. RECOMMENDATIONS AND DISCUSSION: I recommend to continue to monitor, continue symptomatic treatment. Otherwise the patient is started on broad-spectrum IV antibiotics. I would also recommend cautious hydration, repeat labs, PT, OT evaluation. DVT prophylaxis. 2D echo has been ordered. Guarded prognosis because of multiple complex medical issues. Further recommendations to follow. MMSWAPNAL / IJN: [id number] /
[2017-03-11 07:33] LABS: Glucose,Whole Blood 52 mg/dL (75-99)
[2017-03-11 08:02] LABS: Glucose,Whole Blood 117 mg/dL (75-99)
[2017-03-11 08:14] LABS: Anisocytosis Slight; Basophils % (A) 1 %; Eosinophils # (A) 0.3 k/uL (0-0.7); Eosinophils % (A) 5 %; HCT 39.6 % (34.0-46.0); HGB 12.4 gm/dL (11.4-16.0); Lymphocytes # (A) 2.4 k/uL (1.0-4.8); Lymphocytes % (A) 38 %; MCH 30.6 pg (25.0-35.0); MCHC 31.2 g/dL (31.0-37.0); MCV 98.1 fL (80.0-100.0); Macrocytosis Slight; Mean Platelet Volume 7.5; Monocytes # (A) 0.4 k/uL (0-1.0); Monocytes % (A) 7 %; Neutrophils # (A) 2.9 k/uL (1.3-7.7); Neutrophils % (A) 47 %; Platelet Count 290 k/uL (150-450); RBC 4.03 m/uL (3.80-5.40); WBC 6.2 k/uL (3.8-10.6)
[2017-03-11 08:36] LABS: Anion Gap 11 mmol/L; Blood Urea Nitrogen 28 mg/dL (7-17); Calcium 9.2 mg/dL (8.4-10.2); Carbon Dioxide 30 mmol/L (22-30); Chloride 104 mmol/L (98-107); Potassium 3.8 mmol/L (3.5-5.1); Sodium 145 mmol/L (137-145)
[2017-03-11] MEDS: PANTOPRAZOLE 40 MG TABLET PO SCH (08:40)
[2017-03-11] MEDS: cefTRIAXone IN SWFI 1,000 MG/10 ML SYRINGE IVP SCH (08:41)
[2017-03-11 08:51] LABS: Glucose 42 mg/dL (74-99)
[2017-03-11] MEDS ORDERED: LINAGLIPTIN PO SCH (09:00)
[2017-03-11] MEDS ORDERED: EMPAGLIFLOZIN PO SCH (09:00)
[2017-03-11] MEDS ORDERED: PREGABALIN 75 MG CAP PO SCH (09:00)
[2017-03-11] MEDS ORDERED: HEPARIN SODIUM,PORCINE 5,000 UNIT/ML 1 ML VIAL SQ SCH (09:00)
[2017-03-11 11:26] LABS: Glucose,Whole Blood 186 mg/dL (75-99)
[2017-03-11] MEDS ORDERED: MULTIVITAMINS, THERA 1 EACH TAB PO SCH (12:00)
[2017-03-11] MEDS ORDERED: THIAMINE 100 MG TAB PO SCH (12:00)
[2017-03-11] MEDS ORDERED: FOLIC ACID 1 MG TAB PO SCH (12:00)
--- NOTE | 2017-03-11 13:57 | XR ---
EXAMINATION TYPE: XR chest 1V portable DATE OF EXAM: 03/11/2017 HISTORY: pneumonia. REFERENCE: Previous study dated 03/08/2017. FINDINGS: The heart is mildly prominent. There is improved aeration of both lung bases. Pleural space s appear clear. IMPRESSION: 1. CARDIOMEGALY. 2. IMPROVED AERATION, BOTH LUNG BASES.
[2017-03-11] MEDS ORDERED: INSULIN NPH 300 UNIT/3 ML VIAL SQ SCH (14:28)
[2017-03-11 15:13] VITALS: BP 157/89; PULSE 87; RESP 16; TEMP 98.3
[2017-03-11] MEDS ORDERED: AMITRIPTYLINE HCL 25 MG TAB PO SCH (21:00)
--- NOTE | 2017-03-13 11:37 | DS ---
DISCHARGE SUMMARY FINAL DIAGNOSES: 1. Change in mental status, possible metabolic encephalopathy multifactorial possibly secondary to sepsis. 2. Possible bilateral perihilar pneumonia with sepsis. 3. Acute urinary tract infection. 4. Increased creatine with rhabdomyolysis. 5. History of congestive heart failure. 6. History of diabetes mellitus type 2. 7. Hypertension. 8. History of chronic leg wounds. DISCHARGE DISPOSITION: The patient will be discharged in stable condition with guarded prognosis. HISTORY OF PRESENT ILLNESS: This 56-year-old woman with a past medical history of multiple problems admitted with features of pneumonia and sepsis. The patient was treated symptomatically and patient improved significantly. On exam, vitals are stable. CARDIOVASCULAR: S1 and S2 muffled. ABDOMEN: Soft. NERVOUS SYSTEM: No focal deficits. DISCHARGE ADVICE: 1. Diet is 2. Activity limited until followup. 3. Follow up with Dr. John in 1 to 2 days. Medications are as follows: 1. Elavil 100 mg q.h.s. 2. Elavil 75 mg q.h.s. 3. Zithromax 500 mg daily for 5 days. 4. Ceftin 500 mg p.o. b.i.d. for 5 days. 5. Flexeril 10 mg p.o. t.i.d. p.r.n. 6. Valium 5 to 10 mg p.o. b.i.d. p.r.n. 7. Empagliflozin/linagliptin 1 tablet p.o. daily. 8. Vasotec 20 mg p.o. b.i.d. 9. Folic acid 1 mg p.o. 10.Lasix 20 mg p.o. daily. 11.Insulin NPH 98 units subcu q.h.s. 12.Levocetirizine 5 mg p.o. daily. 13.Antivert 12.5 mg p.o. daily. 14.Glucophage 500 mg p.o. b.i.d. 15.Multivitamins 1 p.o. daily. 16.Relafen 500 mg p.o. b.i.d. 17.Nitrostat. 18.Protonix 40 mg p.o. daily. 19.Lyrica 100 mg p.o. b.i.d. 20.Vitamin B1, 100 mg p.o. daily. 21.Desyrel 100 mg p.o. q.h.s. 22.Ambien 10 mg q.h.s. p.r.n. Once again, the patient will be discharged in a stable condition with guarded prognosis. LORI / RIKKI: [id number] / MTDD
--- NOTE | 2017-03-15 14:22 | ECHOF ---
Referral Reason:CHF MEASUREMENTS -------- HEIGHT: 167.6 cm WEIGHT: 100.7 kg BP: 112/62 LAESV Index (A-L): 20.11 ml/m Ao Diam: 3.6 cm (2.0 - 3.7) AV Cusp: 2.3 cm (1.5 - 2.6) LA Diam: 3.9 cm (2.7 - 3.8) RAP: 5.00 mmHg RVSP: 11.65 mmHg FINDINGS -------- Sinus rhythm. This was a technically adequate study. The left ventricular size is normal. There is mild concentric left ventricular hypertrophy. Overa ll left ventricular systolic function is normal with, an EF between 55 - 60 %. The right ventricle is normal in size and function. Normal LA size by volume 22+/-6 ml/m2. The right atrium is normal in size. Aortic valve is trileaflet and is mildly thickened. There is no evidence of aortic regurgitation. There is no evidence of aortic stenosis. The mitral valve leaflets are mildly thickened. There is trace to mild mitral regurgitation. Trace tricuspid regurgitation present. Right ventricular systolic pressure is normal at < 35 mmHg. There is no evidence of pulmonary hypertension. Trace/mild (physiologic) pulmonic regurgitation. The aortic root size is normal. The inferior vena cava is dilated with poor inspiratory collapse which is consistent with estimated r ight atrial pressure of 20 mmHg. The pericardium is normal. There is no pericardial effusion. CONCLUSIONS -------- 1. Sinus rhythm. 2. This was a technically adequate study. 3. The left ventricular size is normal. 4. There is mild concentric left ventricular hypertrophy. 5. Overall left ventricular systolic function is normal with, an EF between 55 - 60 %. 6. Normal LA size by volume 22+/-6 ml/m2. 7. Aortic valve is trileaflet and is mildly thickened. 8. The mitral valve leaflets are mildly thickened. 9. There is trace to mild mitral regurgitation. 10. Trace tricuspid regurgitation present. 11. Right ventricular systolic pressure is normal at < 35 mmHg. 12. There is no evidence of pulmonary hypertension. 13. Trace/mild (physiologic) pulmonic regurgitation. 14. The aortic root size is normal. 15. The inferior vena cava is dilated with poor inspiratory collapse which is consistent with estimat ed right atrial pressure of 20 mmHg. 16. There is no pericardial effusion. FIRE CONTROL TECHNICIAN G: Luis Eduardo Hernandez RDCS
== END 2017-03-11 16:31 | disposition home or self-care (01) | DRG 871 ==
LOC: EC 15:22 → 4MS4W 19:19
PROVIDERS: ADMIT Hospitalist; ATTEND Hospitalist
DX: A41.9 Sepsis, unspecified organism (principal); G93.41 Metabolic encephalopathy; I11.0 Hypertensive heart disease with heart failure; J18.9 Pneumonia, unspecified organism; I50.32 Chronic diastolic (congestive) heart failure; I95.2 Hypotension due to drugs; M62.82 Rhabdomyolysis; N39.0 Urinary tract infection, site not specified; T46.4X5A Adverse effect of angiotensin-converting-enzyme inhibitors, initial encounter; T50.1X5A Adverse effect of loop [high-ceiling] diuretics, initial encounter; R29.6 Repeated falls; I87.8 Other specified disorders of veins; F17.200 Nicotine dependence, unspecified, uncomplicated; F41.9 Anxiety disorder, unspecified; R26.9 Unspecified abnormalities of gait and mobility; G89.29 Other chronic pain; I87.2 Venous insufficiency (chronic) (peripheral); E11.9 Type 2 diabetes mellitus without complications; Z91.81 History of falling; Z83.3 Family history of diabetes mellitus; Z79.1 Long term (current) use of non-steroidal anti-inflammatories (NSAID); Z79.899 Other long term (current) drug therapy; Z79.4 Long term (current) use of insulin; Z80.9 Family history of malignant neoplasm, unspecified; Z90.710 Acquired absence of both cervix and uterus; Z87.19 Personal history of other diseases of the digestive system; Z89.421 Acquired absence of other right toe(s); Z90.89 Acquired absence of other organs; Z98.51 Tubal ligation status
CPT/HCPCS: 36415; 51701; 70450; 71045; 71046; 72100; 72125; 72170; 80048; 80053; 80306; 81001; 82550; 82553; 83036; 83605; 83880; 84484; 85025; 85610; 85730; 87040; 87086; 87502; 93005; 93306; 94760; 96365; 96375; 99285

== ENCOUNTER → 2017-11-21 | Outpatient (CLI) | payer BC ==
--- NOTE | 2017-11-22 12:04 | CT ---
EXAMINATION TYPE: CT brain wo con DATE OF EXAM: 11/21/2017 COMPARISON: CT brain 03/08/2017 HISTORY: Dizziness and near syncope x1 week. CT DLP: 1216 mGycm Automated exposure control for dose reduction was used. Helical imaging through the brain. FINDINGS: Inflammatory change present in the right maxillary sinus greater than left. Ethmoid air cells and sph enoid sinus show inflammatory change as does the frontal sinus. Orbits show an unremarkable appearanc e. There is no hemorrhage or hydrocephalus. Brain density is stable. White matter shows low attenuati on in the periventricular location. IMPRESSION: SINUS DISEASE. NO ACUTE BRAIN ABNORMALITY. Brain MRI may be of benefit.
== END ==
LOC: RADCTMAIN 18:24
PROVIDERS: ATTEND Psychiatry & Neurology Neurology
DX: G45.4 Transient global amnesia (principal); R40.4 Transient alteration of awareness
CPT/HCPCS: 70450

== ENCOUNTER 2017-12-22 10:45 | Inpatient (IN) | payer BC ==
--- NOTE | 2017-12-22 11:39 | ED ---
Neuro HPI - General Chief Complaint: Neuro Symptoms/Deficit Stated Complaint: vision problems/shaky/left hand numbness Time Seen by Provider: 12/22/17 11:00 Source: patient, RN notes reviewed Mode of arrival: wheelchair Limitations: no limitations - History of Present Illness Is the patient presenting with stroke symptoms?: Yes Last Known Well Date: 12/20/17 Initial Comments: This a 57-year-old female who had a history of 2 mini strokes in the past last one being 3 months ago who presents today with 3 days of left arm weakness. She 's also states she started developing a frontal headache this morning 09/28 severity somewhat throbbing in nature. She denies any fevers chills nausea vomiting sweats she has generalized weakness or lower extremities but no focal weakness. 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 This time she is awake alert oriented 3 without any problem with respect to blurry vision or other symptoms. She is a smoker she states she's been trying to quit she has not smoked for 2 months now. She also states she has chronic lower extremity edema and color changes or legs. - Related Data Home Medications: Home Medications Medication Instructions Recorded Confirmed Amitriptyline HCl [Elavil] 100 mg PO HS 12/15/13 03/08/17 Nabumetone [Relafen] 500 mg PO BID 12/15/13 03/08/17 metFORMIN HCL [Glucophage] 500 mg PO BID 12/15/13 03/08/17 Cyclobenzaprine [Flexeril] 10 mg PO TID PRN 03/08/17 03/08/17 Diazepam [Valium] 5 - 10 mg PO BID PRN 03/08/17 03/08/17 Empagliflozin/Linagliptin 1 tab PO DAILY 03/08/17 03/08/17 [Glyxambi 10 mg-5 mg Tablet] Enalapril Maleate [Vasotec] 20 mg PO BID 03/08/17 03/08/17 Furosemide [Lasix] 20 mg PO DAILY 03/08/17 03/08/17 Levocetirizine Dihydrochloride 5 mg PO DAILY 03/08/17 03/08/17 Meclizine [Antivert] 6.25 - 12.5 mg PO TID PRN 03/08/17 03/08/17 Nitroglycerin Sl Tabs [Nitrostat] 0.4 mg SUBLINGUAL Q5M PRN 03/08/17 03/08/17 Pantoprazole Sodium [Protonix] 40 mg PO DAILY 03/08/17 03/08/17 Pregabalin [Lyrica] 100 mg PO BID 03/08/17 03/08/17 Zolpidem [Ambien] 10 mg PO HS PRN 03/08/17 03/08/17 traZODone HCL [Desyrel] 100 mg PO HS 03/08/17 03/08/17 Previous Rx's Medication Instructions Recorded Amitriptyline HCl [Elavil] 75 mg PO HS #30 tab 03/11/17 Azithromycin [Zithromax] 500 mg PO DAILY@1900 #5 tab 03/11/17 Cefuroxime Axetil [Ceftin] 500 mg PO BID #10 tab 03/11/17 Folic Acid 1 mg PO DAILY@1200 #30 tab 03/11/17 Insulin NPH Human Isophane 98 unit SQ HS #1 03/11/17 [humuLIN N] Multivitamins, Thera [Multivitamin 1 each PO DAILY@1200 #30 tab 03/11/17 (formulary)] Thiamine [Vitamin B-1] 100 mg PO DAILY@1200 #30 tab 03/11/17 Allergies/Adverse Reactions: Allergies Allergy/AdvReac Type Severity Reaction Status Date / Time No Known Allergies Allergy Verified 12/22/17 10:50 Review of Systems ROS Statement: Those systems with pertinent positive or pertinent negative responses have been documented in the HPI. ROS Other: All systems not noted in ROS Statement are negative. General Exam - General Exam Comments Initial Comments: This is a well-developed well-nourished awake alert oriented 3 Limitations: no limitations General appearance: alert, in no apparent distress Head exam: Present: atraumatic, normocephalic, normal inspection Eye exam: Present: normal appearance, PERRL, EOMI. Absent: scleral icterus, conjunctival injection, periorbital swelling ENT exam: Present: normal exam, mucous membranes moist Neck exam: Present: normal inspection. Absent: tenderness, meningismus, lymphadenopathy Respiratory exam: Present: normal lung sounds bilaterally. Absent: respiratory distress, wheezes, rales, rhonchi, stridor Cardiovascular Exam: Present: regular rate, normal rhythm, normal heart sounds. Absent: systolic murmur, diastolic murmur, rubs, gallop, clicks GI/Abdominal exam: Present: soft, normal bowel sounds. Absent: distended, tenderness, guarding, rebound, rigid Extremities exam: Present: full ROM, normal capillary refill, pedal edema, other (Stasis dermatitis with edema). Absent: tenderness, joint swelling, calf tenderness Back exam: Present: normal inspection Neurological exam: Present: alert, oriented X3, CN II-XII intact, motor sensory deficit (Inability to maintain her left upper extremity against gravity.) Psychiatric exam: Present: normal affect, normal mood Skin exam: Present: warm, dry, intact. Absent: rash Stroke MDM - Lab Data Result diagrams: 12/22/17 11:20 12/22/17 11:20 Lab Results 12/22/17 12/22/17 12/22/17 Range/Units 11:20 11:20 11:20 WBC 8.9 (3.8-10.6) k/uL RBC 4.25 (3.80-5.40) m/uL Hgb 13.6 (11.4-16.0) gm/dL Hct 42.3 (34.0-46.0) % MCV 99.6 (80.0-100.0) fL MCH 31.9 (25.0-35.0) pg MCHC 32.0 (31.0-37.0) g/dL RDW 15.9 H (11.5-15.5) % Plt Count 349 (150-450) k/uL Neutrophils % 66 % Lymphocytes % 23 % Monocytes % 7 % Eosinophils % 2 % Basophils % 1 % Neutrophils # 5.8 (1.3-7.7) k/uL Lymphocytes # 2.0 (1.0-4.8) k/uL Monocytes # 0.6 (0-1.0) k/uL Eosinophils # 0.2 (0-0.7) k/uL Basophils # 0.0 (0-0.2) k/uL Macrocytosis Slight PT (9.0-12.0) sec INR (<1.2) APTT (22.0-30.0) sec Sodium 141 (137-145) mmol/L Potassium 4.2 (3.5-5.1) mmol/L Chloride 106 (98-107) mmol/L Carbon Dioxide 24 (22-30) mmol/L Anion Gap 11 mmol/L BUN 26 H (7-17) mg/dL Creatinine 0.46 L (0.52-1.04) mg/dL Est GFR (CKD-EPI)AfAm >90 (>60 ml/min/1.73 sqM) Est GFR (CKD-EPI)NonAf >90 (>60 ml/min/1.73 sqM) Glucose 94 (74-99) mg/dL Calcium 9.7 (8.4-10.2) mg/dL Magnesium 1.8 (1.6-2.3) mg/dL Total Bilirubin 0.6 (0.2-1.3) mg/dL AST 27 (14-36) U/L ALT 19 (9-52) U/L Alkaline Phosphatase 80 (38-126) U/L Total Creatine Kinase 31 (30-135) U/L CK-MB (CK-2) 0.5 (0.0-2.4) ng/mL CK-MB (CK-2) Rel Index 1.6 Troponin I <0.012 (0.000-0.034) ng/mL Total Protein 8.4 H (6.3-8.2) g/dL Albumin 4.3 (3.5-5.0) g/dL 12/22/17 Range/Units 11:20 WBC (3.8-10.6) k/uL RBC (3.80-5.40) m/uL Hgb (11.4-16.0) gm/dL Hct (34.0-46.0) % MCV (80.0-100.0) fL MCH (25.0-35.0) pg MCHC (31.0-37.0) g/dL RDW (11.5-15.5) % Plt Count (150-450) k/uL Neutrophils % % Lymphocytes % % Monocytes % % Eosinophils % % Basophils % % Neutrophils # (1.3-7.7) k/uL Lymphocytes # (1.0-4.8) k/uL Monocytes # (0-1.0) k/uL Eosinophils # (0-0.7) k/uL Basophils # (0-0.2) k/uL Macrocytosis PT 10.2 (9.0-12.0) sec INR 1.0 (<1.2) APTT 23.5 (22.0-30.0) sec Sodium (137-145) mmol/L Potassium (3.5-5.1) mmol/L Chloride (98-107) mmol/L Carbon Dioxide (22-30) mmol/L Anion Gap mmol/L BUN (7-17) mg/dL Creatinine (0.52-1.04) mg/dL Est GFR (CKD-EPI)AfAm (>60 ml/min/1.73 sqM) Est GFR (CKD-EPI)NonAf (>60 ml/min/1.73 sqM) Glucose (74-99) mg/dL Calcium (8.4-10.2) mg/dL Magnesium (1.6-2.3) mg/dL Total Bilirubin (0.2-1.3) mg/dL AST (14-36) U/L ALT (9-52) U/L Alkaline Phosphatase (38-126) U/L Total Creatine Kinase (30-135) U/L CK-MB (CK-2) (0.0-2.4) ng/mL CK-MB (CK-2) Rel Index Troponin I (0.000-0.034) ng/mL Total Protein (6.3-8.2) g/dL Albumin (3.5-5.0) g/dL - NIH Stroke Scale 1a. Level of Consciousness: (0) alert 1b. LOC Questions: (0) answers correctly 1c. LOC Commands: (0) performs tasks correctly 2. Best Gaze: (0) normal 3. Visual: (0) no visual loss 4. Facial Palsy: (0) normal symmetrical movement 5a. Motor Arm Left: (1) drift 5b. Motor Arm Right: (0) no drift 6a. Motor Leg Left: (0) no drift 6b. Motor Leg Right: (0) no drift 7. Limb Ataxia: (0) absent 8. Sensory: (0) normal 9. Best Language: (0) no aphasia 10. Dysarthria: (0) normal 11. Extinction/Inattention: (0) no abnormality - Thrombolytic Inclusion/Exclusion Thrombolytic Exclusion Criteria: Symptom Onset > 3 Hours - Medical Decision Making I did discuss findings with patient and her as well as with the admitting physician patient be admitted with neurological consultation. The symptoms are 3 days from onset. Patient currently is on interventional candidate. - EKG Data -: EKG Interpreted by Me EKG shows normal: sinus rhythm (Normal sinus rhythm of 87. Interval 150 to QRS 92 QT since QTC of 380/[address]-T wave changes) Past Medical History Past Medical History: Heart Failure, Diabetes Mellitus, Hypertension Additional Past Medical History / Comment(s): chronic leg wounds History of Any Multi-Drug Resistant Organisms: None Reported Past Surgical History: Appendectomy, Section, Hernia Repair, Hysterectomy, Orthopedic Surgery, Tubal Ligation Additional Past Surgical History / Comment(s): right third toe removal; shoulder repain surgery Past Anesthesia/Blood Transfusion Reactions: No Reported Reaction Past Psychological History: Anxiety Smoking Status: Former smoker Past Alcohol Use History: None Reported Past Drug Use History: None Reported - Past Family History Mother Family Medical History: Diabetes Mellitus Father Family Medical History: Diabetes Mellitus Brother(s) Family Medical History: Cancer, Diabetes Mellitus Course Vital Signs 12/22/17 12/22/17 12/22/17 10:46 11:00 11:15 Temperature 98.2 F Pulse Rate 88 84 Respiratory 18 Rate Blood Pressure 144/86 141/70 143/70 O2 Sat by Pulse 95 95 97 Oximetry 12/22/17 12/22/17 12/22/17 11:30 12:15 12:30 Temperature Pulse Rate 77 83 Respiratory Rate Blood Pressure 127/79 151/89 154/93 O2 Sat by Pulse 97 Oximetry Disposition Clinical Impression: Cerebrovascular accident Disposition: ADMITTED IP TO THIS HOSP Condition: Stable Referrals: Jad John MD [Primary Care Provider] - 1-2 days
--- NOTE | 2017-12-22 11:52 | XR ---
EXAMINATION TYPE: XR chest 2V DATE OF EXAM: 12/22/2017 HISTORY: altered mental status. REFERENCE: Previous study dated 03/11/2017. FINDINGS: Heart size upper limits of normal. The lungs appear clear. Pleural space are clear. IMPRESSION: BORDERLINE CARDIOMEGALY.
--- NOTE | 2017-12-22 12:10 | CT ---
EXAMINATION TYPE: CT brain wo con DATE OF EXAM: 12/22/2017 COMPARISON: Previous study dated 11/21/2017 HISTORY: Lt hand numbness CT DLP: 1153.4 mGycm Automated exposure control for dose reduction was used. FINDINGS: Central structures are midline. There is no evidence of hydrocephalus. No acute focal lesion, mass ef fect or midline shift is seen. I do not see evidence of intracranial blood. There is chronic mucoperiosteal thickening involving the ethmoid sinuses greater on the right than th e left. The mastoid air cells are clear. The bony calvarium is intact. IMPRESSION: 1. NO ACUTE INTRACRANIAL ABNORMALITY. 2. CHRONIC ETHMOIDAL SINUS MUCOSAL DISEASE.
[2017-12-22 12:16] LABS: Basophils % (A) 1 %; Eosinophils # (A) 0.2 k/uL (0-0.7); Eosinophils % (A) 2 %; HCT 42.3 % (34.0-46.0); HGB 13.6 gm/dL (11.4-16.0); Lymphocytes % (A) 23 %; MCH 31.9 pg (25.0-35.0); MCV 99.6 fL (80.0-100.0); Macrocytosis Slight; Mean Platelet Volume 7.4; Monocytes # (A) 0.6 k/uL (0-1.0); Monocytes % (A) 7 %; Neutrophils # (A) 5.8 k/uL (1.3-7.7); Neutrophils % (A) 66 %; Platelet Count 349 k/uL (150-450); RBC 4.25 m/uL (3.80-5.40); RDW 15.9 % (11.5-15.5); WBC 8.9 k/uL (3.8-10.6)
[2017-12-22 12:25] LABS: Partial Thromboplastin Time 23.5 sec (22.0-30.0); Prothrombin Time 10.2 sec (9.0-12.0)
[2017-12-22 12:32] LABS: Albumin 4.3 g/dL (3.5-5.0); Anion Gap 11 mmol/L; Blood Urea Nitrogen 26 mg/dL (7-17); Calcium 9.7 mg/dL (8.4-10.2); Carbon Dioxide 24 mmol/L (22-30); Chloride 106 mmol/L (98-107); Glucose 94 mg/dL (74-99); Sodium 141 mmol/L (137-145); Total Bilirubin 0.6 mg/dL (0.2-1.3); Total Protein 8.4 g/dL (6.3-8.2)
[2017-12-22 12:43] LABS: ALT 19 U/L (9-52); AST 27 U/L (14-36); Alkaline Phosphatase 80 U/L (38-126); Magnesium 1.8 mg/dL (1.6-2.3); Potassium 4.2 mmol/L (3.5-5.1)
[2017-12-22 12:53] LABS: Creatine Kinase 31 U/L (30-135)
[2017-12-22 13:07] LABS: Creatine Kinase MB 0.5 ng/mL (0.0-2.4); Troponin I <0.012 ng/mL (0.000-0.034)
[2017-12-22] MEDS ORDERED: MECLIZINE 12.5 MG TAB PO PRN (13:46)
[2017-12-22] MEDS ORDERED: NITROGLYCERIN SL TABS 0.4 MG TAB SUBLINGUAL PRN (13:46)
--- NOTE | 2017-12-22 14:38 | P.HPIM ---
History of Present Illness H&P Date: 12/22/17 Chief Complaint: Left upper and lower extremity weakness Ms. Rausch is a 37-year-old female with a past medical history of type 2 diabetes mellitus, hypertension, stroke and the past with mild left-sided weakness, chronic bilateral lower extremity edema due to chronic venous stasis, coming to the hospital with a chief complaint of weakness and tingling sensation of her left upper extremity for the past 2 days. Patient states that she has been having weakness of her upper and lower extremity for the past 1 week but for the past couple of days it's been more severe that she is not able to hold stuff with her left hand. Patient states that she has history of mini stroke with some left-sided weakness in the past 3 months back. But this episode has been going on for the past 1 week and she thought her weakness would resolve by itself and so did not seek medical attention. As her weakness has not resolved and she started to have tingling and numbness in her left upper extremity and she also noticed some weakness of her left lower extremity that prompted her to come to the hospital. Patient's is at the bedside and states that she has been stable and not going to the hospital even though he insisted that she has to go. Patient states that she has multiple chronic medical conditions and she takes almost 20 pills daily. Patient is bed bound for most of the time and uses a walker for ambulation due to history of chronic low back pain and also bilateral lower extremity edema. Patient also mentions about increased swelling of her bilateral lower extremities for the past 1 week. Patient denies having any chest pain or shortness of breath. She denies having any cough or difficulty in breathing. Patient denies having any fevers chills or rigors. Patient has bilateral chronic lower extremity edema with stasis dermatitis. Patient denies having any blurring of vision. Denies having any slurred speech or loss of consciousness. Patient also mentions about feeling fatigued and has generalized weakness. Patient denies having any facial droop. In the ED patient had a CT of the head was negative for any acute intracranial process. Chest x-ray showing borderline cardiomegaly. Review of Systems REVIEW OF SYSTEMS: PSYCH: Denies having any history of anxiety or depression NEURO: As per HPI VASCULAR: Chronic bilateral lower extremity edema HEMATOLOGIC: No history of easy bleeding and bruising . No recent infections . RESPIRATORY: No cough, No SOB, No chest discomfort. OPHTHALMOLOGIC: No blurry vision and no eye discharge : No dysuria or hematuria MARKETING AND DEVELOPMENT COORDINATOR: No bleeding PV CARDIAC: No chest pain , shortness of breath , paroxysmal nocturnal dyspnea MUSCULOSKELETAL : Chronic low back pain GI: No abdominal pain, Nausea or vomiting. No constipation or diarrhea. All 13 review of systems are done and negative except for the ones mentioned above Past Medical History Past Medical History: Heart Failure, Diabetes Mellitus, Hypertension Additional Past Medical History / Comment(s): chronic leg wounds History of Any Multi-Drug Resistant Organisms: None Reported Past Surgical History: Appendectomy, Section, Hernia Repair, Hysterectomy, Orthopedic Surgery, Tubal Ligation Additional Past Surgical History / Comment(s): right third toe removal; shoulder repain surgery Past Anesthesia/Blood Transfusion Reactions: No Reported Reaction Past Psychological History: Anxiety Smoking Status: Former smoker Past Alcohol Use History: None Reported Past Drug Use History: None Reported - Past Family History Mother Family Medical History: Diabetes Mellitus Father Family Medical History: Diabetes Mellitus Brother(s) Family Medical History: Cancer, Diabetes Mellitus Medications and Allergies Home Medications Medication Instructions Recorded Confirmed Type Amitriptyline HCl [Elavil] 100 mg PO HS 12/15/13 03/08/17 History Nabumetone [Relafen] 500 mg PO BID 12/15/13 03/08/17 History metFORMIN HCL [Glucophage] 500 mg PO BID 12/15/13 03/08/17 History Cyclobenzaprine [Flexeril] 10 mg PO TID PRN 03/08/17 03/08/17 History Diazepam [Valium] 5 - 10 mg PO BID PRN 03/08/17 03/08/17 History Empagliflozin/Linagliptin 1 tab PO DAILY 03/08/17 03/08/17 History [Glyxambi 10 mg-5 mg Tablet] Enalapril Maleate [Vasotec] 20 mg PO BID 03/08/17 03/08/17 History Furosemide [Lasix] 20 mg PO DAILY 03/08/17 03/08/17 History Levocetirizine Dihydrochloride 5 mg PO DAILY 03/08/17 03/08/17 History Meclizine [Antivert] 6.25 - 12.5 mg PO TID PRN 03/08/17 03/08/17 History Nitroglycerin Sl Tabs [Nitrostat] 0.4 mg SUBLINGUAL Q5M PRN 03/08/17 03/08/17 History Pantoprazole Sodium [Protonix] 40 mg PO DAILY 03/08/17 03/08/17 History Pregabalin [Lyrica] 100 mg PO BID 03/08/17 03/08/17 History Zolpidem [Ambien] 10 mg PO HS PRN 03/08/17 03/08/17 History traZODone HCL [Desyrel] 100 mg PO HS 03/08/17 03/08/17 History Amitriptyline HCl [Elavil] 75 mg PO HS #30 tab 03/11/17 Rx Azithromycin [Zithromax] 500 mg PO DAILY@1900 #5 tab 03/11/17 Rx Cefuroxime Axetil [Ceftin] 500 mg PO BID #10 tab 03/11/17 Rx Folic Acid 1 mg PO DAILY@1200 #30 tab 03/11/17 Rx Insulin NPH Human Isophane 98 unit SQ HS #1 03/11/17 03/08/17 Rx [humuLIN N] Multivitamins, Thera [Multivitamin 1 each PO DAILY@1200 #30 tab 03/11/17 Rx (formulary)] Thiamine [Vitamin B-1] 100 mg PO DAILY@1200 #30 tab 03/11/17 Rx Allergies Allergy/AdvReac Type Severity Reaction Status Date / Time No Known Allergies Allergy Verified 12/22/17 10:50 Physical Exam Vitals: Vital Signs Temp Pulse Resp BP Pulse Ox 12/22/17 12:30 83 154/93 12/22/17 12:15 151/89 97 12/22/17 11:30 77 127/79 12/22/17 11:15 84 143/70 97 12/22/17 11:00 141/70 95 12/22/17 10:46 98.2 F 88 18 144/86 95 Intake and Output 12/21/17 12/22/17 12/22/17 22:59 06:59 14:59 Other: Weight 90.718 kg PHYSICAL EXAMINATION: GENERAL: The patient is alert and oriented x3, not in any acute distress. Well developed, well nourished. HEENT: Pupils are round and equally reacting to light. EOMI. No scleral icterus. No conjunctival pallor. Normocephalic, atraumatic. No pharyngeal erythema. No thyromegaly. CARDIOVASCULAR: S1 and S2 present. No murmurs, rubs, or gallops. PULMONARY: Chest is clear to auscultation, no wheezing or crackles. ABDOMEN: Soft, nontender, nondistended, normoactive bowel sounds. MUSCULOSKELETAL: No joint swelling or deformity. EXTREMITIES: Bilateral pitting edema. Chronic venous stasis. NEUROLOGICAL: No facial droop.Power is 3 out of 5 in the left upper and lower extremities. Right upper and lower extremity power is 4 out of 5. SKIN: Patient has bilateral lower extremity venous stasis dermatosis and edema Results CBC & Chem 7: 12/22/17 11:20 12/22/17 11:20 Labs: Abnormal Lab Results - Last 24 Hours (Table) 12/22/17 12/22/17 Range/Units 11:20 11:20 RDW 15.9 H (11.5-15.5) % BUN 26 H (7-17) mg/dL Creatinine 0.46 L (0.52-1.04) mg/dL Total Protein 8.4 H (6.3-8.2) g/dL Assessment and Plan Assessment: ASSESSMENT Left upper and lower extremity weakness - most likely secondary to a stroke Type 2 diabetes mellitus Hypertension History of prior stroke with mild left-sided weakness Chronic low back pain Chronic bilateral lower extremity edema with venous stasis dermatitis Former smoker quit 2 months back Obesity with BMI of 32 Chronic debility and Plan: Patient has upper and lower extremity weakness that are acute on chronic which is most likely secondary to her stroke. CT of the head is within normal limits. We will get an MRI of the brain. Continue the patient on Aspirin and Plavix that she has been on. We'll resume her home medications. Will obtain Neurology consult. Further recommendations to follow depending on the progress of the patient.
[2017-12-22 14:42] LABS: Glucose,Whole Blood 100 mg/dL (75-99)
[2017-12-22 15:15] VITALS: BMI 43.0
[2017-12-22] MEDS ORDERED: PREGABALIN 100 MG CAP PO STA (15:50)
[2017-12-22] MEDS: SODIUM CHLORIDE 0.9% 1,000 ML IV SCH (17:14)
[2017-12-22] MEDS: HEPARIN SODIUM,PORCINE 5,000 UNIT/ML 1 ML VIAL SQ SCH ×2 (17:15→23:35)
[2017-12-22] MEDS: INSULIN ASPART 100 UNIT/ML 1 ML 10 ML VIAL SQ SCH ×2 (17:15→21:12)
[2017-12-22] MEDS: Buprenorphine Hcl [Subutex] 8 MG SL SCH ×2 (17:16→22:18)
[2017-12-22] MEDS ORDERED: AZITHROMYCIN 500 MG TAB PO SCH (19:00)
--- NOTE | 2017-12-22 19:44 | P.CNNES ---
History of Present Illness Consult date: 12/22/17 History of Present Illness: The patient is a 57-year-old right-handed white female who states that one week ago she developed left-sided weakness involving face arm and leg. She states she was unable to come to the hospital but she did call her doctor last Sunday and he told her to come to the ER. The patient also complains of bilateral leg pain for the past 1 year. She for the past 1 year she's been using a walker. She reports a history of TIA in the past involving left side. She denies any back pain or neck pain. Does have pain problems in her legs and goes to a special clinic for that. Her past medical history includes heart failure diabetes hypertension and macular degeneration prior strokes/TIA had a CT of the brain in the emergency room which showed no acute intracranial abnormality Review of Systems Constitutional: Denies chills, Denies fever Eyes: denies blurred vision, denies pain Respiratory: Denies cough Gastrointestinal: Reports as per HPI Genitourinary: Denies dysuria, Denies hematuria Integumentary: Denies pruritus, Denies rash Neurological: Denies numbness, Denies weakness Psychiatric: Denies anxiety, Denies depression Past Medical History Past Medical History: Heart Failure, Diabetes Mellitus, Hypertension Additional Past Medical History / Comment(s): chronic leg wounds History of Any Multi-Drug Resistant Organisms: None Reported Past Surgical History: Appendectomy, Section, Hernia Repair, Hysterectomy, Orthopedic Surgery, Tubal Ligation Additional Past Surgical History / Comment(s): right third toe removal; shoulder repain surgery Past Anesthesia/Blood Transfusion Reactions: No Reported Reaction Smoking Status: Never smoker - Past Family History Mother Family Medical History: Diabetes Mellitus Father Family Medical History: Diabetes Mellitus Brother(s) Family Medical History: Cancer, Diabetes Mellitus Medications and Allergies Home Medications Medication Instructions Recorded Confirmed Type Amitriptyline HCl [Elavil] 100 mg PO HS 12/15/13 12/22/17 History Nabumetone [Relafen] 500 mg PO BID 12/15/13 12/22/17 History metFORMIN HCL [Glucophage] 500 mg PO BID 12/15/13 12/22/17 History Cyclobenzaprine [Flexeril] 10 mg PO TID PRN 03/08/17 12/22/17 History Diazepam [Valium] 5 - 10 mg PO BID PRN 03/08/17 12/22/17 History Empagliflozin/Linagliptin 1 tab PO DAILY 03/08/17 12/22/17 History [Glyxambi 10 mg-5 mg Tablet] Enalapril Maleate [Vasotec] 20 mg PO BID 03/08/17 12/22/17 History Furosemide [Lasix] 20 mg PO DAILY 03/08/17 12/22/17 History Nitroglycerin Sl Tabs [Nitrostat] 0.4 mg SUBLINGUAL Q5M PRN 03/08/17 12/22/17 History Pantoprazole Sodium [Protonix] 40 mg PO DAILY 03/08/17 12/22/17 History Pregabalin [Lyrica] 100 mg PO BID 03/08/17 12/22/17 History Zolpidem [Ambien] 10 mg PO HS PRN 03/08/17 12/22/17 History traZODone HCL [Desyrel] 100 mg PO HS 03/08/17 12/22/17 History Folic Acid 1 mg PO DAILY@1200 #30 tab 03/11/17 12/22/17 Rx Insulin NPH Human Isophane 98 unit SQ HS #1 03/11/17 12/22/17 Rx [humuLIN N] Thiamine [Vitamin B-1] 100 mg PO DAILY@1200 #30 tab 03/11/17 12/22/17 Rx Buprenorphine HCl [Subutex] 8 mg SL QID 12/22/17 12/22/17 History Nitrofurantoin Macrocrystal 100 mg PO BID 12/22/17 12/22/17 History [Macrodantin] Allergies Allergy/AdvReac Type Severity Reaction Status Date / Time No Known Allergies Allergy Verified 12/22/17 16:00 Physical Examination - Vital Signs Vital Signs: Vital Signs Temp Pulse Pulse Resp BP BP Pulse Ox 12/22/17 16:00 81 16 145/68 96 12/22/17 15:14 98.7 F 94 16 145/75 96 12/22/17 14:00 90 136/84 98 12/22/17 13:45 87 167/90 96 12/22/17 13:15 163/111 12/22/17 12:30 83 154/93 12/22/17 12:15 151/89 97 12/22/17 11:30 77 127/79 12/22/17 11:15 84 143/70 97 12/22/17 11:00 141/70 95 12/22/17 10:46 98.2 F 88 18 144/86 95 Intake and Output 12/22/17 12/22/17 12/22/17 06:59 14:59 22:59 Intake Total 120 240 Balance 120 240 Intake: Oral 120 240 Other: Voiding Method Toilet Incontinent Weight 90.718 kg 120.8 kg - Constitutional General appearance: average body habitus - Respiratory Respiratory: lungs clear - Cardiovascular Cardiovascular: regular rate - Neurologic Neurologic examination: Mental status: She was awake alert and oriented 3. Her speech was fluent there was no a aphasia or dysarthria Cranial nerve examination: She had poor vision bilaterally Motor examination: She had left-sided weakness Sensory examination: Decreased light touch left arm next Gait: Not tested Results - Laboratory Findings CBC and BMP: 12/22/17 11:20 12/22/17 11:20 Abnormal Lab Findings: Abnormal Labs 12/22/17 12/22/17 12/22/17 11:20 11:20 14:40 RDW 15.9 H BUN 26 H Creatinine 0.46 L POC Glucose (mg/dL) 100 H Total Protein 8.4 H Assessment and Plan (1) Cerebrovascular accident Current Visit: Yes Status: Acute SNOMED Code(s): 322552093 Plan: The patient is a 57-year-old woman with prior history of stroke with left-sided weakness who presents with episode of increased left-sided weakness one week ago. His old one year history of bilateral leg pain. She denies back pain or neck pain. She had a CT of the brain which was unremarkable except for sinus disease. Recommend carotid ultrasound, echocardiogram, and MRI of the brain and cervical spine. Continue Plavix and aspirin
[2017-12-22] MEDS ORDERED: NON-FORMULARY DRUG (Cefuroxime Axetil [Ceftin] 500 MG) PO SCH (21:00)
[2017-12-22] MEDS: LISINOPRIL 20 MG TAB PO SCH (21:10)
[2017-12-22] MEDS: PREGABALIN 100 MG CAP PO SCH (21:10)
[2017-12-22] MEDS: MELOXICAM 7.5 MG TAB PO SCH (21:10)
[2017-12-22] MEDS: traZODone HCL 100 MG TAB PO SCH (21:11)
[2017-12-22] MEDS: metFORMIN 500 MG TAB PO SCH (21:11)
[2017-12-22] MEDS: INSULIN NPH 300 UNIT/3 ML VIAL SQ SCH (21:12)
[2017-12-22 21:28] LABS: Glucose,Whole Blood 125 mg/dL (75-99)
[2017-12-22 21:44] LABS: Cholesterol 231 mg/dL (<200); HDL Cholesterol 32 mg/dL (40-60); LDL Cholesterol,Calculated 173 mg/dL (0-99); Triglycerides 130 mg/dL (<150)
[2017-12-22] MEDS: ZOLPIDEM 10 MG TAB PO PRN (22:22)
[2017-12-23] MEDS: DIAZEPAM 5 MG TAB PO PRN (03:03)
[2017-12-23 06:31] LABS: Glucose,Whole Blood 167 mg/dL (75-99)
[2017-12-23 06:33] LABS: Basophils % (A) 0 %; Eosinophils # (A) 0.2 k/uL (0-0.7); Eosinophils % (A) 3 %; HCT 41.6 % (34.0-46.0); HGB 13.1 gm/dL (11.4-16.0); Lymphocytes # (A) 2.3 k/uL (1.0-4.8); Lymphocytes % (A) 30 %; MCHC 31.4 g/dL (31.0-37.0); MCV 98.7 fL (80.0-100.0); Macrocytosis Slight; Mean Platelet Volume 7.5; Monocytes # (A) 0.5 k/uL (0-1.0); Monocytes % (A) 7 %; Neutrophils # (A) 4.4 k/uL (1.3-7.7); Neutrophils % (A) 58 %; Platelet Count 313 k/uL (150-450); RBC 4.21 m/uL (3.80-5.40); RDW 15.5 % (11.5-15.5); WBC 7.6 k/uL (3.8-10.6)
[2017-12-23] MEDS: INSULIN ASPART 100 UNIT/ML 1 ML 10 ML VIAL SQ SCH ×4 (06:37→21:10)
[2017-12-23 06:50] LABS: Anion Gap 9 mmol/L; Blood Urea Nitrogen 32 mg/dL (7-17); Calcium 9.6 mg/dL (8.4-10.2); Carbon Dioxide 24 mmol/L (22-30); Chloride 106 mmol/L (98-107); Glucose 177 mg/dL (74-99); Potassium 4.1 mmol/L (3.5-5.1); Sodium 139 mmol/L (137-145)
[2017-12-23] MEDS: MULTIVITAMINS, THERA 1 EACH TAB PO SCH (08:13)
[2017-12-23] MEDS: metFORMIN 500 MG TAB PO SCH ×2 (08:13→20:55)
[2017-12-23] MEDS: ASPIRIN 325 MG TAB PO SCH (08:13)
[2017-12-23] MEDS: HEPARIN SODIUM,PORCINE 5,000 UNIT/ML 1 ML VIAL SQ SCH ×3 (08:13→23:20)
[2017-12-23] MEDS: THIAMINE 100 MG TAB PO SCH (08:14)
[2017-12-23] MEDS: PANTOPRAZOLE 40 MG TABLET PO SCH (08:14)
[2017-12-23] MEDS: LISINOPRIL 20 MG TAB PO SCH ×2 (08:14→20:55)
[2017-12-23] MEDS: LORATADINE 10 MG TAB PO SCH (08:14)
[2017-12-23] MEDS: FUROSEMIDE 20 MG TAB PO SCH (08:14)
[2017-12-23] MEDS: PREGABALIN 100 MG CAP PO SCH ×2 (08:14→20:55)
[2017-12-23] MEDS: FOLIC ACID 1 MG TAB PO SCH (08:14)
[2017-12-23] MEDS: MELOXICAM 7.5 MG TAB PO SCH ×2 (08:14→20:54)
[2017-12-23] MEDS: CLOPIDOGREL 75 MG TAB PO SCH (08:15)
[2017-12-23] MEDS: CYCLOBENZAPRINE 10 MG TAB PO PRN ×2 (08:22→20:55)
[2017-12-23] MEDS: EMPAGLIFLOZIN PO SCH (10:51)
[2017-12-23] MEDS: LINAGLIPTIN PO SCH (10:51)
[2017-12-23] MEDS: Buprenorphine Hcl [Subutex] 8 MG SL SCH ×4 (10:51→20:57)
[2017-12-23 11:22] LABS: Glucose,Whole Blood 178 mg/dL (75-99)
--- NOTE | 2017-12-23 13:58 | US ---
EXAMINATION TYPE: US carotid duplex BILAT DATE OF EXAM: 12/23/2017 COMPARISON: NONE CLINICAL HISTORY: Stroke. h/o stroke and left sided weakness EXAM MEASUREMENTS: RIGHT: Peak Systolic Velocity (PSV) cm/sec ----- Right CCA: 84.0 ----- Right ICA: 90.5 ----- Right ECA: 83.9 ICA/CCA ratio: 1.1 RIGHT: End Diastole cm/sec ----- Right CCA: 11.6 ----- Right ICA: 25.6 ----- Right ECA: 12.4 LEFT: Peak Systolic Velocity (PSV) cm/sec ----- Left CCA: 81.7 ----- Left ICA: 76.2 ----- Left ECA: 125.6 ICA/CCA ratio: 0.9 LEFT: End Diastole cm/sec ----- Left CCA: 14.6 ----- Left ICA: 12.5 ----- Left ECA: 17.9 VERTEBRALS (direction of flow): Right Vertebral: Antegrade Left Vertebral: Antegrade Rhythm: Normal Mild homogeneous plaque with no significant stenosis seen. IMPRESSION: I Do Not See Evidence Of A Hemodynamically Significant Stenosis In Either Carotid System. Criteria for Assigning % of Stenosis / Diameter reduction (Estimation based on the indirect measurements of the internal carotid artery velocities (ICA PSV). 1. Normal (no stenosis)=ICA PSV < 125 cm/s: ratio < 2.0: ICA EDV<40 cm/s. 2. Less than 50% stenosis=ICA PSV < 125 cm/s: ratio < 2.0: ICA EDV<40 cm/s. 3. 50 to 69% stenosis=ICA PSV of 125 to 230 cm/s: ration 2.0 ? 4.0: ICA EDV 40-100 cm/s. 4. Greater than 70% stenosis to near occlusion= ICA PSV > 230 cm/s: ratio > 4.0: ICA EDV > 100 cm/s. 5. Near occlusion= ICA PSV velocities may be low or undetectable: variable ratio and ICA EDV. 6. Total occlusion=unable to detect flow.
--- NOTE | 2017-12-23 14:32 | P.PN ---
Subjective Progress Note Date: 12/23/17 Principal diagnosis: CVA Ms. Rausch is a 57-year-old female with a past medical history of type 2 diabetes mellitus, hypertension, stroke and the past with mild left-sided weakness, chronic bilateral lower extremity edema due to chronic venous stasis, coming to the hospital with a chief complaint of weakness and tingling sensation of her left upper extremity for the past 2 days. Patient states that she has been having weakness of her upper and lower extremity for the past 1 week but for the past couple of days it's been more severe that she is not able to hold stuff with her left hand. Patient states that she has history of mini stroke with some left-sided weakness in the past 3 months back. But this episode has been going on for the past 1 week and she thought her weakness would resolve by itself and so did not seek medical attention. As her weakness has not resolved and she started to have tingling and numbness in her left upper extremity and she also noticed some weakness of her left lower extremity that prompted her to come to the hospital. In the ED patient had a CAT scan of the head that was negative for acute intracranial process. Neurology has been consulted. Patient is undergoing stroke workup with echocardiogram, carotid Doppler, MRI of the brain and cervical spine. Today the patient is sitting up in a chair besides the bed. Her sister is at the bedside. Patient states that she still has weakness of her left upper and lower extremity. Patient denies having any chest pain or difficulty in breathing or palpitations. No cough no fever chills or rigors. No abdominal pain nausea vomiting or diarrhea. No dysuria or hematuria. Active Medications Aspirin (Aspirin) 325 mg PO DAILY [facility] Last Admin: 12/23/17 08:13 Dose: 325 mg Clopidogrel Bisulfate (Plavix) 75 mg PO DAILY [facility] Last Admin: 12/23/17 08:15 Dose: 75 mg Cyclobenzaprine HCl (Flexeril) 10 mg PO TID PRN PRN Reason: Pain Last Admin: 12/23/17 08:22 Dose: 10 mg Diazepam (Valium) 5 mg PO BID PRN PRN Reason: Anxiety/Spasms Last Admin: 12/23/17 03:03 Dose: 5 mg Folic Acid (Folic Acid) 1 mg PO DAILY@1200 [facility] Last Admin: 12/23/17 08:14 Dose: 1 mg Furosemide (Lasix) 20 mg PO DAILY [facility] Last Admin: 12/23/17 08:14 Dose: 20 mg Heparin Sodium (Porcine) (Heparin) 5,000 unit SQ Q8HR [facility] Last Admin: 12/23/17 08:13 Dose: 5,000 unit Sodium Chloride (Saline 0.9%) 1,000 mls @ 20 mls/hr IV .Q24H [facility] Last Admin: 12/22/17 17:14 Dose: 20 mls/hr Insulin Aspart (Novolog) 0 unit SQ ACHS [facility]; Protocol Last Admin: 12/23/17 12:29 Dose: 2 unit Insulin Human NPH (Humulin N) 98 unit SQ HS [facility] Last Admin: 12/22/17 21:12 Dose: Not Given Lisinopril (Zestril) 40 mg PO BID [facility] Last Admin: 12/23/17 08:14 Dose: 40 mg Loratadine (Claritin) 10 mg PO DAILY [facility] Last Admin: 12/23/17 08:14 Dose: 10 mg Meclizine HCl (Antivert) 12.5 mg PO TID PRN PRN Reason: Vertigo Meloxicam (Mobic) 7.5 mg PO BID [facility] Last Admin: 12/23/17 08:14 Dose: 7.5 mg Metformin HCl (Glucophage) 500 mg PO BID [facility] Last Admin: 12/23/17 08:13 Dose: 500 mg Multivitamins (Theragran) 1 each PO DAILY@1200 [facility] Last Admin: 12/23/17 08:13 Dose: 1 each Nitroglycerin (Nitrostat) 0.4 mg SUBLINGUAL Q5M PRN PRN Reason: Chest Pain Non-Formulary Medication (Empagliflozin/Linagliptin [Glyxambi 10 Mg-5 Mg Tablet] ) 1 tab PO DAILY [facility] Last Admin: 12/23/17 10:51 Dose: Not Given Buprenorphine Hcl [ (Subutex] 8 Mg) 8 mg SL QID [facility] Last Admin: 12/23/17 11:45 Dose: Not Given Pantoprazole Sodium (Protonix) 40 mg PO DAILY [facility] Last Admin: 12/23/17 08:14 Dose: 40 mg Pregabalin (Lyrica) 100 mg PO BID [facility] Last Admin: 12/23/17 08:14 Dose: 100 mg Thiamine HCl (Vitamin B-1) 100 mg PO DAILY@1200 [facility] Last Admin: 12/23/17 08:14 Dose: 100 mg Trazodone HCl (Desyrel) 100 mg PO HS [facility] Last Admin: 12/22/17 21:11 Dose: 100 mg Zolpidem Tartrate (Ambien) 10 mg PO HS PRN PRN Reason: sleep Last Admin: 12/22/17 22:22 Dose: 10 mg Objective - Vital Signs Vital signs: Vital Signs Temp 97.2 F L 12/23/17 12:00 Pulse 79 12/23/17 12:00 Resp 18 12/23/17 12:00 BP 108/59 12/23/17 12:00 Pulse Ox 94 L 12/23/17 12:00 Intake & Output 12/22/17 12/23/17 12/23/17 19:59 06:59 18:59 Intake Total 1140 Output Total 550 Balance 590 Weight Intake: IV 20 Invasive Line 1 20 Intake, IV Titration Amount Sodium Chloride 0.9% 1, 000 ml @ 20 mls/hr IV . Q24H [facility] Rx#:[id number] Oral 1120 Output: Urine 550 Other: Voiding Method Toilet Incontinent # Voids - Exam GENERAL: The patient is alert and oriented x3, not in any acute distress. Well developed, well nourished. HEENT: Pupils are round and equally reacting to light. EOMI. No scleral icterus. No conjunctival pallor. Normocephalic, atraumatic. No pharyngeal erythema. No thyromegaly. CARDIOVASCULAR: S1 and S2 present. No murmurs, rubs, or gallops. PULMONARY: Chest is clear to auscultation, no wheezing or crackles. ABDOMEN: Soft, nontender, nondistended, normoactive bowel sounds. MUSCULOSKELETAL: No joint swelling or deformity. EXTREMITIES: Bilateral pitting edema. Chronic venous stasis. NEUROLOGICAL: No facial droop.Power is 3 out of 5 in the left upper and lower extremities. Right upper and lower extremity power is 4 out of 5. SKIN: Patient has bilateral lower extremity venous stasis dermatosis and edema - Labs CBC & Chem 7: 12/23/17 05:56 12/23/17 05:56 Labs: Abnormal Lab Results - Last 24 Hours (Table) 12/22/17 12/22/17 12/23/17 Range/Units 11:20 21:08 05:56 BUN 32 H (7-17) mg/dL Glucose 177 H (74-99) mg/dL POC Glucose (mg/dL) 125 H (75-99) mg/dL Cholesterol 231 H (<200) mg/dL LDL Cholesterol, Calc 173 H (0-99) mg/dL HDL Cholesterol 32 L (40-60) mg/dL 12/23/17 12/23/17 Range/Units 06:05 11:19 BUN (7-17) mg/dL Glucose (74-99) mg/dL POC Glucose (mg/dL) 167 H 178 H (75-99) mg/dL Cholesterol (<200) mg/dL LDL Cholesterol, Calc (0-99) mg/dL HDL Cholesterol (40-60) mg/dL Assessment and Plan Assessment: ASSESSMENT Left upper and lower extremity weakness - most likely secondary to a stroke Type 2 diabetes mellitus Hypertension History of prior stroke with mild left-sided weakness Chronic low back pain Chronic bilateral lower extremity edema with venous stasis dermatitis Former smoker quit 2 months back Obesity with BMI of 32 Chronic debility and Plan: Patient has upper and lower extremity weakness that are acute on chronic which is most likely secondary to her stroke. CT of the head is within normal limits. We will get an MRI of the brain. Echocardiogram and carotid artery Doppler pending. Continue the patient on Aspirin and Plavix that she has been on. Continue with the current medication regimen. Neurology on board and following. Further recommendations to follow depending on the progress of the patient.
[2017-12-23] MEDS: SODIUM CHLORIDE 0.9% 1,000 ML IV SCH (16:13)
[2017-12-23 16:42] LABS: Glucose,Whole Blood 143 mg/dL (75-99)
[2017-12-23] MEDS: traZODone HCL 100 MG TAB PO SCH (20:54)
[2017-12-23] MEDS: ZOLPIDEM 10 MG TAB PO PRN (20:55)
[2017-12-23 20:58] LABS: Glucose,Whole Blood 145 mg/dL (75-99)
[2017-12-23] MEDS: INSULIN NPH 300 UNIT/3 ML VIAL SQ SCH (21:10)
[2017-12-24] MEDS: DIAZEPAM 5 MG TAB PO PRN ×2 (03:58→17:42)
[2017-12-24] MEDS: INSULIN ASPART 100 UNIT/ML 1 ML 10 ML VIAL SQ SCH ×4 (06:30→21:29)
[2017-12-24 06:32] LABS: Glucose,Whole Blood 113 mg/dL (75-99)
[2017-12-24 07:10] LABS: Basophils % (A) 1 %; Eosinophils # (A) 0.3 k/uL (0-0.7); Eosinophils % (A) 4 %; HCT 39.1 % (34.0-46.0); HGB 12.5 gm/dL (11.4-16.0); Lymphocytes # (A) 2.7 k/uL (1.0-4.8); Lymphocytes % (A) 34 %; MCH 31.4 pg (25.0-35.0); MCHC 31.8 g/dL (31.0-37.0); MCV 98.6 fL (80.0-100.0); Macrocytosis Slight; Mean Platelet Volume 7.2; Monocytes # (A) 0.5 k/uL (0-1.0); Monocytes % (A) 6 %; Neutrophils # (A) 4.2 k/uL (1.3-7.7); Neutrophils % (A) 53 %; Platelet Count 340 k/uL (150-450); RBC 3.97 m/uL (3.80-5.40); RDW 15.6 % (11.5-15.5); WBC 7.9 k/uL (3.8-10.6)
[2017-12-24 07:42] LABS: Anion Gap 9 mmol/L; Blood Urea Nitrogen 41 mg/dL (7-17); Calcium 9.2 mg/dL (8.4-10.2); Carbon Dioxide 26 mmol/L (22-30); Chloride 107 mmol/L (98-107); Glucose 97 mg/dL (74-99); Sodium 142 mmol/L (137-145)
--- NOTE | 2017-12-24 08:50 | ECHOF ---
Referral Reason:Stroke MEASUREMENTS -------- HEIGHT: 167.6 cm WEIGHT: 103.4 kg BP: 107/53 IVSd: 1.4 cm (0.6 - 1.1) LVIDd: 5.1 cm (3.9 - 5.3) LVPWd: 1.6 cm (0.6 - 1.1) IVSs: 2.2 cm LVIDs: 2.6 cm LVPWs: 1.7 cm LAESV Index (A-L): 24.18 ml/m Ao Diam: 3.3 cm (2.0 - 3.7) AV Cusp: 1.4 cm (1.5 - 2.6) LA Diam: 4.0 cm (2.7 - 3.8) MV EXCURSION: 17.722 mm (> 18.000) MV EF SLOPE: 60 mm/s (70 - 150) EPSS: 0.5 cm MV E Husam: 0.89 m/s MV A Husam: 1.02 m/s MV E/A Ratio: 0.87 RAP: 5.00 mmHg RVSP: 15.06 mmHg FINDINGS -------- Sinus rhythm. This was a technically good study. There is moderate concentric left ventricular hypertrophy. Overall left ventricular systolic functi on is normal with, an EF between 55 - 60 %. The right ventricle is normal in size and function. The left atrium is normal in size. The right atrium is normal in size. The aortic valve is trileaflet, and appears structurally normal. No aortic stenosis or regurgitation. Mild mitral regurgitation is present. Trace tricuspid regurgitation present. The right ventricular systolic pressure, as measured by Dopp ler, is 15.06mmHg. Pulmonic valve appears structurally normal. The aortic root size is normal. The inferior vena cava is mildly dilated. The pericardium is normal. CONCLUSIONS -------- 1. Sinus rhythm. 2. This was a technically good study. 3. There is moderate concentric left ventricular hypertrophy. 4. Overall left ventricular systolic function is normal with, an EF between 55 - 60 %. 5. The right ventricle is normal in size and function. 6. The left atrium is normal in size. 7. The right atrium is normal in size. 8. The aortic valve is trileaflet, and appears structurally normal. No aortic stenosis or regurgitati on. 9. Mild mitral regurgitation is present. 10. Trace tricuspid regurgitation present. 11. The right ventricular systolic pressure, as measured by Doppler, is 15.06mmHg. 12. Pulmonic valve appears structurally normal. 13. The aortic root size is normal. 14. The inferior vena cava is mildly dilated. 15. The pericardium is normal. [employer]: Chaparrita Castro RDCS
[2017-12-24] MEDS: MELOXICAM 7.5 MG TAB PO SCH ×2 (09:00→21:31)
[2017-12-24] MEDS: HEPARIN SODIUM,PORCINE 5,000 UNIT/ML 1 ML VIAL SQ SCH ×3 (09:00→23:38)
[2017-12-24] MEDS: CLOPIDOGREL 75 MG TAB PO SCH (09:00)
[2017-12-24] MEDS: ASPIRIN 325 MG TAB PO SCH (09:00)
[2017-12-24] MEDS: PREGABALIN 100 MG CAP PO SCH ×2 (09:00→21:31)
[2017-12-24] MEDS: LISINOPRIL 20 MG TAB PO SCH ×2 (09:00→21:30)
[2017-12-24] MEDS: FUROSEMIDE 20 MG TAB PO SCH (09:00)
[2017-12-24] MEDS: PANTOPRAZOLE 40 MG TABLET PO SCH (09:01)
[2017-12-24] MEDS: LORATADINE 10 MG TAB PO SCH (09:01)
[2017-12-24] MEDS: metFORMIN 500 MG TAB PO SCH ×2 (09:01→21:31)
[2017-12-24] MEDS: LINAGLIPTIN PO SCH (09:05)
[2017-12-24] MEDS: Buprenorphine Hcl [Subutex] 8 MG SL SCH ×4 (09:05→21:31)
[2017-12-24] MEDS: EMPAGLIFLOZIN PO SCH (09:05)
[2017-12-24] MEDS: CYCLOBENZAPRINE 10 MG TAB PO PRN ×2 (09:16→21:30)
--- NOTE | 2017-12-24 09:32 | MR ---
EXAMINATION TYPE: MR brain/cspine wo DATE OF EXAM: 12/24/2017 COMPARISON: CT brain 12/22/2017 HISTORY: 57-year-old female CVA, neurologic deficits, left hand numbness per prior CT history TECHNIQUE: Multiplanar, multisequence images of the brain and brainstem were acquired without IV con trast. Diffusion weighted imaging is performed. Subsequent multiplanar, multisequence imaging of the cervical spine. FINDINGS: Brain: No evidence for acute infarction, hemorrhage, mass, mass effect, midline shift, herniation, effacemen t of basal cisterns, or extra-axial fluid collection. The ventricles and sulci are age-appropriate. Major intracranial flow voids are intact. T2/FLAIR weighted sequences show mild scattered burden of right white matter change in the subcortica l and deep white matter regions of both cerebral hemispheres numbering approximately 5-10 on each julian e. Suggestive of an old lacunar infarct in the left basal ganglia. Patchy increased signal changes al so present in the right paramedian colby Partially empty sella noted. Otherwise, midline structures demonstrate normal morphology. The cranio cervical junction is normal. Complete to near complete opacification of the bilateral frontal sinuses and right sphenoid sinus and moderate mucosal thickening throughout the remainder of the nasal sinuses. There is opacification of the right mastoid air cells. CERVICAL SPINE: Motion artifacts degrade the exam. No craniocervical junction abnormal, predental space widening, or prevertebral soft tissue swelling. There is grade 1 anterolisthesis at C4-C5, C6-C7, and C7-T1 secondary to hypertrophic facet arthropat hy. Multilevel uncovertebral joint degenerative changes also present with variable moderate multilevel de generative disc disease characterized by disc desiccation, variable mild disc space narrowing, disc o steophyte complex formation. Scattered ligamentum flavum thickening is also present. At C2-C3, there is facet and uncovertebral joint arthropathy causing mild right neuroforaminal stenos is without significant spinal canal stenosis. At C3-C4, there is mild to moderate spinal canal stenosis secondary to disc osteophyte complex and li gamentum flavum thickening abutting and mildly flattening both the dorsal and ventral cord. Hypertrop hic facet and uncovertebral joint arthropathy greater on the right. Changes contribute to moderate to severe right neuroforaminal stenosis. At C4-C5, disc osteophyte complex with ligamentum flavum thickening and facet/uncovertebral joint deg enerative change. Changes mildly narrow the spinal canal and contribute to [id number] right sam roforaminal stenosis. At C5-C6, there is disc osteophyte complex with uncovertebral joint and facet degenerative change. Ch anges within moderate to severe right and moderate left neuroforaminal stenosis. Mild overall spinal canal stenosis with abutment of the ventral cord but no cord flattening. At C6-C7, grade 1 anterolisthesis with hypertrophic facet and uncovertebral joint degenerative change and disc osteophyte complex. No significant spinal canal stenosis. Changes result in mild left neuro foraminal stenosis. At C7-T1, hypertrophic facet arthropathy with a grade 1 anterolisthesis. Changes resulting in mild bi lateral neuroforaminal stenosis without significant spinal canal stenosis. Artifacts limit assessment for cord signal abnormality. No definite cord signal abnormality is identi fied. No prevertebral or paravertebral soft tissue amount is seen. IMPRESSION: Brain: 1. No acute intracranial abnormality seen. 2. Scattered mild burden of T2 bright white matter changes, nonspecific, most likely relating to rain ges of chronic small vessel ischemic disease. 3. Moderate to severe pansinusitis. 4. Additional trapped fluid in the right mastoid air cells. Correlate for mastoiditis. Cervical spine: 1. Moderate multilevel degenerative disc disease. Multilevel hypertrophic facet and uncovertebral hudson nt arthropathy as well. 2. Degenerative grade 1 anterolistheses at C4-C5, C6-C7, and C7-T1. 3. Overall changes contribute to mild to moderate spinal canal stenosis at C3-C4 with abutment and sl ight flattening of both the dorsal and ventral cord. No lobo cord compression. Moderate to severe ri ght neuroforaminal stenosis at this level. 4. Mild spinal canal narrowing at C4-C5 and C5-C6. 5. At C5-C6, changes result in moderate to severe right and moderate left neuroforaminal stenosis.
[2017-12-24 11:43] LABS: Glucose,Whole Blood 95 mg/dL (75-99)
[2017-12-24] MEDS: MULTIVITAMINS, THERA 1 EACH TAB PO SCH (11:59)
[2017-12-24] MEDS: FOLIC ACID 1 MG TAB PO SCH (12:00)
[2017-12-24] MEDS: THIAMINE 100 MG TAB PO SCH (12:00)
--- NOTE | 2017-12-24 12:18 | P.CONS ---
History of Present Illness - Reason for Consult Consult date: 12/24/17 Diabetic ulcers - History of Present Illness This is a 57-year-old female patient presented to the hospital on December 22 for left upper and lower extremity weakness. She states she had a stroke in the past but all symptoms resolved. Regarding diabetic ulcer, patient states that [facility] the care of Dr. Moraes for left leg stasis ulcers. It appears her last visit was in January 2017. Patient states that her PCP sent her to the [facility] vein clinic and had laser surgery done on her veins. She is not sure why because she denies having any pain or varices. She complains of not feeling well for the past week with generalized weakness and no energy. She states her blood sugars have been running normal and that her last hemoglobin A1c was at 7. She states the wounds on her right have been worsening and more painful. She is unable to see the wound on the right lateral leg. She has had a previous amputation of the third toe. She recently quit smoking 2 months ago. Review of Systems All systems: negative Constitutional: Reports fatigue, Reports lethargy, Reports malaise, Reports weakness, Denies chills, Denies fever, Denies poor appetite Eyes: denies blurred vision, denies pain Ears, nose, mouth and throat: Denies dental pain, Denies dysphagia, Denies headache, Denies mouth pain, Denies sore throat Cardiovascular: Reports edema, Reports leg edema, Denies chest pain, Denies shortness of breath Respiratory: Denies cough, Denies cough with sputum, Denies dyspnea, Denies wheezing Gastrointestinal: Denies abdominal pain, Denies diarrhea, Denies loss of appetite, Denies nausea, Denies vomiting Genitourinary: Denies dysuria, Denies hematuria Musculoskeletal: Denies frequent falls, Denies gait dysfunction, Denies myalgias Integumentary: Reports color changes, Reports wounds, Denies pruritus, Denies rash Neurological: Reports gait dysfunction, Reports weakness, Denies change in mentation, Denies change in speech, Denies numbness Psychiatric: Denies anxiety, Denies depression Endocrine: Denies fatigue, Denies weight change Past Medical History Past Medical History: Heart Failure, Diabetes Mellitus, Hypertension Additional Past Medical History / Comment(s): chronic leg wounds, diabetic retinopathy, diabetic neuropathy History of Any Multi-Drug Resistant Organisms: None Reported Past Surgical History: Appendectomy, Section, Hernia Repair, Hysterectomy, Orthopedic Surgery, Tubal Ligation Additional Past Surgical History / Comment(s): right third toe removal; shoulder repain surgery Past Anesthesia/Blood Transfusion Reactions: No Reported Reaction Smoking Status: Never smoker Additional Past Alcohol Use History / Comment(s): Patient was a smoker one pack per day for at least 20 years and quit 2 months ago. She denies any medical marijuana, marijuana, street drug or alcohol use. She was at home with her and 2 dogs. - Past Family History Mother Family Medical History: Diabetes Mellitus Father Family Medical History: Diabetes Mellitus Brother(s) Family Medical History: Cancer, Diabetes Mellitus Medications and Allergies Home Medications Medication Instructions Recorded Confirmed Type Amitriptyline HCl [Elavil] 100 mg PO HS 12/15/13 12/22/17 History Nabumetone [Relafen] 500 mg PO BID 12/15/13 12/22/17 History metFORMIN HCL [Glucophage] 500 mg PO BID 12/15/13 12/22/17 History Cyclobenzaprine [Flexeril] 10 mg PO TID PRN 03/08/17 12/22/17 History Diazepam [Valium] 5 - 10 mg PO BID PRN 03/08/17 12/22/17 History Empagliflozin/Linagliptin 1 tab PO DAILY 03/08/17 12/22/17 History [Glyxambi 10 mg-5 mg Tablet] Enalapril Maleate [Vasotec] 20 mg PO BID 03/08/17 12/22/17 History Furosemide [Lasix] 20 mg PO DAILY 03/08/17 12/22/17 History Nitroglycerin Sl Tabs [Nitrostat] 0.4 mg SUBLINGUAL Q5M PRN 03/08/17 12/22/17 History Pantoprazole Sodium [Protonix] 40 mg PO DAILY 03/08/17 12/22/17 History Pregabalin [Lyrica] 100 mg PO BID 03/08/17 12/22/17 History Zolpidem [Ambien] 10 mg PO HS PRN 03/08/17 12/22/17 History traZODone HCL [Desyrel] 100 mg PO HS 03/08/17 12/22/17 History Folic Acid 1 mg PO DAILY@1200 #30 tab 03/11/17 12/22/17 Rx Insulin NPH Human Isophane 98 unit SQ HS #1 03/11/17 12/22/17 Rx [humuLIN N] Thiamine [Vitamin B-1] 100 mg PO DAILY@1200 #30 tab 03/11/17 12/22/17 Rx Buprenorphine HCl [Subutex] 8 mg SL QID 12/22/17 12/22/17 History Nitrofurantoin Macrocrystal 100 mg PO BID 12/22/17 12/22/17 History [Macrodantin] Allergies Allergy/AdvReac Type Severity Reaction Status Date / Time No Known Allergies Allergy Verified 12/22/17 16:00 Physical Exam Vitals: Vital Signs Temp Pulse Resp BP BP Pulse Ox 12/24/17 08:55 98.1 F 78 16 111/54 95 12/24/17 03:46 85 16 107/53 94 L 12/24/17 00:00 77 18 90/50 90/52 92 L 12/23/17 20:00 98.7 F 80 20 130/67 92 L 12/23/17 15:49 77 18 12/23/17 15:46 97.9 F 77 18 104/59 95 12/23/17 12:00 97.2 F L 79 18 108/59 94 L Intake and Output 12/23/17 12/24/17 12/24/17 22:59 06:59 14:59 Intake Total 10 240 Balance 10 240 Intake: IV 10 Invasive Line 1 10 Oral 240 Other: Voiding Method Toilet Diaper # Voids 1 Weight 103.7 kg Gen: This is a obese 57-year-old female. She is sitting in a chair with legs in a dependent position. She appears to be in no acute distress. HEENT: Head is atraumatic, normocephalic. Pupils equal, round. Sclerae is anicteric. Conjunctiva pink. Mucous membranes of the mouth are moist. NECK: Supple. No JVD. No lymphadenopathy. No thyromegaly. LUNGS: Clear to auscultation. No wheezes or rhonchi. No intercostal retractions. HEART: Regular rate and rhythm. No murmur. ABDOMEN: Soft. Bowel sounds are present. No masses. No tenderness. EXTREMITIES: Right foot has a noted third toe amputation. There is small wound at the base of the fourth toe and top of the first with callus formation. There is a diabetic ulcer on the right lateral tib-fib area. Serous drainage, foul order. Dorsalis pedis is weak bilaterally, chronic dark skin changes to bilateral lower extremities. NEUROLOGICAL: Patient is awake, alert and oriented x3. 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 Results Results: Laboratory Results WBC 7.9 k/uL (3.8-10.6) 12/24/17 06:13 RBC 3.97 m/uL (3.80-5.40) 12/24/17 06:13 Hgb 12.5 gm/dL (11.4-16.0) 12/24/17 06:13 Hct 39.1 % (34.0-46.0) 12/24/17 06:13 MCV 98.6 fL (80.0-100.0) 12/24/17 06:13 MCH 31.4 pg (25.0-35.0) 12/24/17 06:13 MCHC 31.8 g/dL (31.0-37.0) 12/24/17 06:13 RDW 15.6 % (11.5-15.5) H 12/24/17 06:13 Plt Count 340 k/uL (150-450) 12/24/17 06:13 Neutrophils % 53 % 12/24/17 06:13 Lymphocytes % 34 % 12/24/17 06:13 Monocytes % 6 % 12/24/17 06:13 Eosinophils % 4 % 12/24/17 06:13 Basophils % 1 % 12/24/17 06:13 Neutrophils # 4.2 k/uL (1.3-7.7) 12/24/17 06:13 Lymphocytes # 2.7 k/uL (1.0-4.8) 12/24/17 06:13 Monocytes # 0.5 k/uL (0-1.0) 12/24/17 06:13 Eosinophils # 0.3 k/uL (0-0.7) 12/24/17 06:13 Basophils # 0.0 k/uL (0-0.2) 12/24/17 06:13 Macrocytosis Slight 12/24/17 06:13 PT 10.2 sec (9.0-12.0) 12/22/17 11:20 INR 1.0 (<1.2) 12/22/17 11:20 APTT 23.5 sec (22.0-30.0) 12/22/17 11:20 Sodium 142 mmol/L (137-145) 12/24/17 06:13 Potassium 4.0 mmol/L (3.5-5.1) 12/24/17 06:13 Chloride 107 mmol/L (98-107) 12/24/17 06:13 Carbon Dioxide 26 mmol/L (22-30) 12/24/17 06:13 Anion Gap 9 mmol/L 12/24/17 06:13 BUN 41 mg/dL (7-17) H 12/24/17 06:13 Creatinine 0.72 mg/dL (0.52-1.04) 12/24/17 06:13 Est GFR (CKD-EPI)AfAm >90 (>60 ml/min/1.73 sqM) 12/24/17 06:13 Est GFR (CKD-EPI)NonAf >90 (>60 ml/min/1.73 sqM) 12/24/17 06:13 Glucose 97 mg/dL (74-99) 12/24/17 06:13 POC Glucose (mg/dL) 95 mg/dL (75-99) 12/24/17 11:35 POC Glu Crane Chaser ID Chana Alvarez 12/24/17 11:[address] Glu mg/dL 154 12/23/17 05:56 Hemoglobin A1c 7.0 % (4.0-6.0) H 12/23/17 05:56 Calcium 9.2 mg/dL (8.4-10.2) 12/24/17 06:13 Magnesium 1.8 mg/dL (1.6-2.3) 12/22/17 11:20 Total Bilirubin 0.6 mg/dL (0.2-1.3) 12/22/17 11:20 AST 27 U/L (14-36) 12/22/17 11:20 ALT 19 U/L (9-52) 12/22/17 11:20 Alkaline Phosphatase 80 U/L (38-126) 12/22/17 11:20 Total Creatine Kinase 31 U/L (30-135) 12/22/17 11:20 CK-MB (CK-2) 0.5 ng/mL (0.0-2.4) 12/22/17 11:20 CK-MB (CK-2) Rel Index 1.6 12/22/17 11:20 Troponin I <0.012 ng/mL (0.000-0.034) 12/22/17 23:24 Total Protein 8.4 g/dL (6.3-8.2) H 12/22/17 11:20 Albumin 4.3 g/dL (3.5-5.0) 12/22/17 11:20 Triglycerides 130 mg/dL (<150) 12/22/17 11:20 Cholesterol 231 mg/dL (<200) H 12/22/17 11:20 LDL Cholesterol, Calc 173 mg/dL (0-99) H 12/22/17 11:20 HDL Cholesterol 32 mg/dL (40-60) L 12/22/17 11:20 CBC & Chem 7: 12/24/17 06:13 12/24/17 06:13 Labs: Abnormal Lab Results - Last 24 Hours (Table) 12/23/17 12/23/17 12/23/17 Range/Units 11:19 16:41 20:54 RDW (11.5-15.5) % BUN (7-17) mg/dL POC Glucose (mg/dL) 178 H 143 H 145 H (75-99) mg/dL 12/24/17 12/24/17 12/24/17 Range/Units 06:13 06:13 06:28 RDW 15.6 H (11.5-15.5) % BUN 41 H (7-17) mg/dL POC Glucose (mg/dL) 113 H (75-99) mg/dL Assessment and Plan Plan: This is a 57-year-old female Presented with possible new onset of stroke being followed by Dr. Hensley with left extremity weakness. Patient also has a chronic right diabetic ulcer. Local wound care will be addressed. Antibiotics will be addressed. Continue supportive care. Further recommendations as patient progresses. The above dictated assessment and findings were discussed with Dr. Armenta. The impression and plan of care have been directed as dictated. Cristina Rosenthal nurse practitioner acting as scribe for Dr. Armenta.
[2017-12-24] MEDS: SODIUM CHLORIDE 0.9% 1,000 ML IV SCH (14:01)
[2017-12-24 16:34] LABS: Glucose,Whole Blood 195 mg/dL (75-99)
--- NOTE | 2017-12-24 16:43 | P.PN ---
Subjective Progress Note Date: 12/24/17 Progress note being dictated for Dr. Colon. Interval history:Ms. Raucsh is a 57-year-old female with a past medical history of type 2 diabetes mellitus, hypertension, stroke and the past with mild left- sided weakness, chronic bilateral lower extremity edema due to chronic venous stasis, coming to the hospital with a chief complaint of weakness and tingling sensation of her left upper extremity for the past 2 days. Patient states that she has been having weakness of her upper and lower extremity for the past 1 week but for the past couple of days it's been more severe that she is not able to hold stuff with her left hand. Patient states that she has history of mini stroke with some left-sided weakness in the past 3 months back. But this episode has been going on for the past 1 week and she thought her weakness would resolve by itself and so did not seek medical attention. As her weakness has not resolved and she started to have tingling and numbness in her left upper extremity and she also noticed some weakness of her left lower extremity that prompted her to come to the hospital. In the ED patient had a CAT scan of the head that was negative for acute intracranial process. Neurology has been consulted. Patient is undergoing stroke workup with echocardiogram, carotid Doppler, MRI of the brain and cervical spine. Today the patient is sitting up in a chair besides the bed. Her sister is at the bedside. Patient states that she still has weakness of her left upper and lower extremity. Patient denies having any chest pain or difficulty in breathing or palpitations. No cough no fever chills or rigors. No abdominal pain nausea vomiting or diarrhea. No dysuria or hematuria. Active Medications Aspirin (Aspirin) 325 mg PO DAILY [facility] Last Admin: 12/23/17 08:13 Dose: 325 mg Clopidogrel Bisulfate (Plavix) 75 mg PO DAILY [facility] Last Admin: 12/23/17 08:15 Dose: 75 mg Cyclobenzaprine HCl (Flexeril) 10 mg PO TID PRN PRN Reason: Pain Last Admin: 12/23/17 08:22 Dose: 10 mg Diazepam (Valium) 5 mg PO BID PRN PRN Reason: Anxiety/Spasms Last Admin: 12/23/17 03:03 Dose: 5 mg Folic Acid (Folic Acid) 1 mg PO DAILY@1200 [facility] Last Admin: 11/04/18 08:14 Dose: 1 mg Furosemide (Lasix) 20 mg PO DAILY [facility] Last Admin: 12/23/17 08:14 Dose: 20 mg Heparin Sodium (Porcine) (Heparin) 5,000 unit SQ Q8HR [facility] Last Admin: 12/23/17 08:13 Dose: 5,000 unit Sodium Chloride (Saline 0.9%) 1,000 mls @ 20 mls/hr IV .Q24H [facility] Last Admin: 12/22/17 17:14 Dose: 20 mls/hr Insulin Aspart (Novolog) 0 unit SQ ACHS [facility]; Protocol Last Admin: 12/23/17 12:29 Dose: 2 unit Insulin Human NPH (Humulin N) 98 unit SQ HS [facility] Last Admin: 12/22/17 21:12 Dose: Not Given Lisinopril (Zestril) 40 mg PO BID [facility] Last Admin: 12/23/17 08:14 Dose: 40 mg Loratadine (Claritin) 10 mg PO DAILY [facility] Last Admin: 12/23/17 08:14 Dose: 10 mg Meclizine HCl (Antivert) 12.5 mg PO TID PRN PRN Reason: Vertigo Meloxicam (Mobic) 7.5 mg PO BID [facility] Last Admin: 12/23/17 08:14 Dose: 7.5 mg Metformin HCl (Glucophage) 500 mg PO BID [facility] Last Admin: 12/23/17 08:13 Dose: 500 mg Multivitamins (Theragran) 1 each PO DAILY@1200 [facility] Last Admin: 12/23/17 08:13 Dose: 1 each Nitroglycerin (Nitrostat) 0.4 mg SUBLINGUAL Q5M PRN PRN Reason: Chest Pain Non-Formulary Medication (Empagliflozin/Linagliptin [Glyxambi 10 Mg-5 Mg Tablet] ) 1 tab PO DAILY [facility] Last Admin: 12/23/17 10:51 Dose: Not Given Buprenorphine Hcl [ (Subutex] 8 Mg) 8 mg SL QID [facility] Last Admin: 12/23/17 11:45 Dose: Not Given Pantoprazole Sodium (Protonix) 40 mg PO DAILY [facility] Last Admin: 12/23/17 08:14 Dose: 40 mg Pregabalin (Lyrica) 100 mg PO BID [facility] Last Admin: 12/23/17 08:14 Dose: 100 mg Thiamine HCl (Vitamin B-1) 100 mg PO DAILY@1200 [facility] Last Admin: 12/23/17 08:14 Dose: 100 mg Trazodone HCl (Desyrel) 100 mg PO HS [facility] Last Admin: 12/22/17 21:11 Dose: 100 mg Zolpidem Tartrate (Ambien) 10 mg PO HS PRN PRN Reason: sleep Last Admin: 12/22/17 22:22 Dose: 10 mg 12/24/2017 left-sided weakness greater than right-sided persists, complains of food and drink "hurting once swallowed". Evaluated by neurology, recommendations noted. Neuro workup in progress. Echo reporting no hemodynamic significant stenosis .Echo reporting normal LV function, EF 55-60% .MRI completed, results pending. Evaluated by infectious disease regarding chronic right diabetic ulcer wound care, antibiotics. Objective - Vital Signs Vital signs: Vital Signs Temp 98 F 12/24/17 15:30 Pulse 70 12/24/17 15:30 Resp 16 12/24/17 15:30 BP 106/58 12/24/17 15:30 Pulse Ox 97 12/24/17 15:30 Intake & Output 12/23/17 12/24/17 12/24/17 18:59 06:59 18:59 Intake Total 1150 480 Output Total 550 Balance 600 480 Weight 103.7 kg Intake: IV 30 Invasive Line 1 30 Oral 1120 480 Output: Urine 550 Other: Voiding Method Toilet Toilet Toilet Incontinent Diaper Diaper # Voids 1 1 - Exam GENERAL: The patient is alert and oriented x3, not in any acute distress. Well developed, well nourished. HEENT: Pupils are round and equally reacting to light. EOMI. No scleral icterus. No conjunctival pallor. Normocephalic, atraumatic. No pharyngeal erythema. No thyromegaly. CARDIOVASCULAR: S1 and S2 present. No murmurs, rubs, or gallops. PULMONARY: Chest is clear to auscultation, no wheezing or crackles. ABDOMEN: Soft, nontender, nondistended, normoactive bowel sounds. MUSCULOSKELETAL: No joint swelling or deformity. EXTREMITIES: Bilateral pitting edema. Chronic venous stasis. Right foot third toe amputation, Small wound at base of right fourth toe, right lateral tibia ulcer with serous drainage. Weaker DP pulse. NEUROLOGICAL: No facial droop.Power is 3 out of 5 in the left upper and lower extremities. Right upper and lower extremity power is 4 out of 5. SKIN: Patient has bilateral lower extremity venous stasis dermatosis and edema - Labs CBC & Chem 7: 12/24/17 06:13 12/24/17 06:13 Labs: Abnormal Lab Results - Last 24 Hours (Table) 12/23/17 12/23/17 12/23/17 Range/Units 05:56 16:41 20:54 RDW (11.5-15.5) % BUN (7-17) mg/dL POC Glucose (mg/dL) 143 H 145 H (75-99) mg/dL Hemoglobin A1c 7.0 H (4.0-6.0) % 12/24/17 12/24/17 12/24/17 Range/Units 06:13 06:13 06:28 RDW 15.6 H (11.5-15.5) % BUN 41 H (7-17) mg/dL POC Glucose (mg/dL) 113 H (75-99) mg/dL Hemoglobin A1c (4.0-6.0) % Assessment and Plan Assessment: Left upper and lower extremity weakness - most likely secondary to a stroke, possibly degenerative disc disease Type 2 diabetes mellitus Hypertension History of prior stroke with mild left-sided weakness Chronic low back pain Chronic bilateral lower extremity edema with venous stasis dermatitis Former smoker quit 2 months back Obesity with BMI of 32 Chronic debility Chronic right foot diabetic ulcer Plan: Continue on current medication regime, monitoring and symptomatic treatment. Brain MRI completed, results pending. PT/OT, potential subacute rehab at discharge. Speech therapy consulted as patient complains of difficulty swallowing, food, drink "hurts going down, once swallowed". Wound care, antibiotics as per infectious disease. Follow closely with neurology. Discharge planning in progress for tomorrow to subacute rehab. The impression and plan of care has been dictated as directed. : I performed a history and examination of this patient, discussed the same with the dictator. I agree with the dictator's note ,documented as a scribe. Any additional findings or plans will be noted.
--- NOTE | 2017-12-24 20:41 | P.PN ---
Subjective Progress Note Date: 12/24/17 The patient is a 57-year-old woman with history of previous stroke with left- sided weakness and presented to the hospital with recurrent left-sided weakness. Dates she's doing about the same. She is being treated for tonic right leg diabetic ulcer wound. Patient has had a complete TIA workup including carotid ultrasound, echocardiogram, and CT of the brain. T of the brain showed no acute abnormality. She also had an MRI of the brain and the cervical spine today. MRI of the brain showed no acute abnormality. There was chronic small vessel ischemic changes and pansinusitis. Her MRI of the cervical spine showed mild to moderate spinal stenosis and multilevel degenerative disc disease. Objective - Vital Signs Vital signs: Vital Signs Temp 98 F 12/24/17 15:30 Pulse 70 12/24/17 15:30 Resp 16 12/24/17 15:30 BP 106/58 12/24/17 15:30 Pulse Ox 97 12/24/17 15:30 Intake & Output 12/24/17 12/24/17 12/25/17 06:59 18:59 06:59 Intake Total 480 Balance 480 Weight 103.7 kg Intake: Oral 480 Other: Voiding Method Toilet Toilet Diaper Diaper # Voids 1 1 - Constitutional General appearance: Present: obese - EENT Eyes: Present: EOMI, PERRLA ENT: Present: hearing grossly normal - Respiratory Respiratory: bilateral: CTA - Cardiovascular Rhythm: regular - Neurologic Neurologic Comment(s): Neurologic examination: Mental status: She was awake alert and oriented. There is no a aphasia or dysarthria. Cranial nerve examination pupils were equal and reactive she has poor vision bilaterally there was no facial asymmetry next Motor examination she was able to lift both arms up against gravity. She had some give way type weakness in the left arm. Lower extremities she was able to lift both legs up against gravity. Gait was not tested - Labs CBC & Chem 7: 12/24/17 06:13 12/24/17 06:13 Labs: Abnormal Lab Results - Last 24 Hours (Table) 12/23/17 12/23/17 12/24/17 Range/Units 05:56 20:54 06:13 RDW 15.6 H (11.5-15.5) % BUN (7-17) mg/dL POC Glucose (mg/dL) 145 H (75-99) mg/dL Hemoglobin A1c 7.0 H (4.0-6.0) % 12/24/17 12/24/17 12/24/17 Range/Units 06:13 06:28 16:31 RDW (11.5-15.5) % BUN 41 H (7-17) mg/dL POC Glucose (mg/dL) 113 H 195 H (75-99) mg/dL Hemoglobin A1c (4.0-6.0) % Microbiology - Last 24 Hours (Table) 12/24/17 08:42 Wound Culture - Preliminary Leg - Right Assessment and Plan (1) History of stroke Current Visit: Yes Status: Acute SNOMED Code(s): 095663097 (2) Localized swelling of both lower legs Current Visit: No Status: Acute Priority: Medium SNOMED Code(s): 331723895 (3) Cervical spinal stenosis Current Visit: Yes Status: Acute SNOMED Code(s): 93234982 (4) Degenerative disc disease, cervical Current Visit: Yes Status: Acute Code(s): M50.30 - OTHER CERVICAL DISC DEGENERATION, UNSP CERVICAL REGION SNOMED Code(s): 13270056 Plan: The patient is a 57-year-old woman with prior history of stroke with left-sided weakness presented to the hospital with recurrence of left-sided symptoms. As had a complete stroke workup which was unremarkable. MRI of the brain which showed no acute abnormalities.'s had an MRI of the cervical spine which showed cervical spinal stenosis, degenerative disc disease without cord compression, and anterolisthesis . Recommend follow-up with orthopedics regarding spinal stenosis which can be done outpatient. Recommend rehab. Recommend aspirin 325 mg a day for stroke prevention
[2017-12-24 21:13] LABS: Glucose,Whole Blood 158 mg/dL (75-99)
[2017-12-24] MEDS: INSULIN NPH 300 UNIT/3 ML VIAL SQ SCH (21:29)
[2017-12-24] MEDS: ZOLPIDEM 10 MG TAB PO PRN (21:30)
[2017-12-24] MEDS: traZODone HCL 100 MG TAB PO SCH (21:31)
--- NOTE | 2017-12-24 22:44 | P.CON ---
Consult Note - . Consult date: 12/24/17 Assessment/Plan:: This is a 57-year-old female patient presented to the hospital on December 22 for left upper and lower extremity weakness. She states she had a stroke in the past but all symptoms resolved. Regarding diabetic ulcer, patient states that [facility] the care of Dr. Moraes for left leg stasis ulcers. It appears her last visit was in January 2017. Patient states that her PCP sent her to the [facility] vein clinic and had laser surgery done on her veins. She is not sure why because she denies having any pain or varices. She complains of not feeling well for the past week with generalized weakness and no energy. She states her blood sugars have been running normal and that her last hemoglobin A1c was at 7. She states the wounds on her right have been worsening and more painful. She is unable to see the wound on the right lateral leg. She has had a previous amputation of the third toe. She recently quit smoking 2 months ago. Please see the consult note as dictated by nurse practitioner Mrs. Cristina Rosenthal. reveals the patient has had some improvement since admission was continue to have ongoing swelling erythema and some ulceration the left leg. She is denying fevers or chills. At this time cultures are in process blood and wound. Local wound care with Silvadene was applied to the lower extremities wrap with gauze and an Cody wrap. Elevate as she tolerates. We'll give him with the left leg we'll initiate cefazolin for now while awaiting culture results. She was she's been having some intervention from the pain clinic [facility] in one procedure per leg so far. Multivitamin with zinc is added we'll ensure protein is adequate. I agree with evaluation, assessment and plan is dictated by nurse practitioner Mrs. Cristina Rosenthal.
[2017-12-25 04:35] LABS: Glucose,Whole Blood 65 mg/dL (75-99)
[2017-12-25 05:19] LABS: Glucose,Whole Blood 88 mg/dL (75-99)
[2017-12-25 06:07] LABS: Glucose,Whole Blood 69 mg/dL (75-99)
[2017-12-25 06:37] LABS: Glucose,Whole Blood 82 mg/dL (75-99)
[2017-12-25] MEDS: INSULIN ASPART 100 UNIT/ML 1 ML 10 ML VIAL SQ SCH ×4 (06:38→21:21)
[2017-12-25] MEDS: LISINOPRIL 20 MG TAB PO SCH ×2 (08:19→20:13)
[2017-12-25] MEDS: ASPIRIN 325 MG TAB PO SCH (08:19)
[2017-12-25] MEDS: Buprenorphine Hcl [Subutex] 8 MG SL SCH ×4 (08:19→21:26)
[2017-12-25] MEDS: LINAGLIPTIN PO SCH (08:19)
[2017-12-25] MEDS: EMPAGLIFLOZIN PO SCH (08:19)
[2017-12-25] MEDS: MULTIVITAMINS, THERA 1 EACH TAB PO SCH (08:20)
[2017-12-25] MEDS: LORATADINE 10 MG TAB PO SCH (08:20)
[2017-12-25] MEDS: FUROSEMIDE 20 MG TAB PO SCH (08:20)
[2017-12-25] MEDS: FOLIC ACID 1 MG TAB PO SCH (08:20)
[2017-12-25] MEDS: HEPARIN SODIUM,PORCINE 5,000 UNIT/ML 1 ML VIAL SQ SCH ×3 (08:20→23:11)
[2017-12-25] MEDS: CLOPIDOGREL 75 MG TAB PO SCH (08:20)
[2017-12-25] MEDS: MELOXICAM 7.5 MG TAB PO SCH ×2 (08:20→20:14)
[2017-12-25] MEDS: PREGABALIN 100 MG CAP PO SCH ×2 (08:20→20:17)
[2017-12-25] MEDS: PANTOPRAZOLE 40 MG TABLET PO SCH (08:20)
[2017-12-25] MEDS: THIAMINE 100 MG TAB PO SCH (08:20)
[2017-12-25] MEDS: metFORMIN 500 MG TAB PO SCH ×2 (08:20→20:13)
[2017-12-25 11:44] LABS: Glucose,Whole Blood 134 mg/dL (75-99)
--- NOTE | 2017-12-25 13:20 | CDI ---
Last Revision, January 2017 Documentation Clarification Form Date: 12/25/17 From: Marivel Maria RN Admit Date: 12/22/2017 1:49:00 PM Patient Name: Jania Rausch Visit Number: [id number] ATTENTION: The Clinical Documentation Specialists (CDI) and [facility] Coding Staff appreciate your assistance in clarifying documentation. Please respond to the clarification below the line at the bottom and electronically sign. The CDI & [facility] Coding staff will review the response and follow-up if needed. Please note: Queries are made part of the Legal Health Record. If you have any questions, please contact the author of this message via ITS. Dr. Heather Velarde MD, Can you please render your opinion on the following documentation? Patient admitted for left upper and lower extremity weakness secondary to a stroke. Heart Failure is documented H&P, Consult note 12/22/17 and consult dated . History/Risk Factors: HTN, stroke, chronic bilateral lower extremity edema due to chronic venous stasis, heart failure, chronic leg wounds Clinical Indicators: Heart Failure is documented as a history throughout the chart VS on admission: T 98.2, P 88, R 18, 144/86, 95% RA BNP: Last BNP on chart from 03/08 100. 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 Diastolic Heart Failure: Acute Chronic Acute on Chronic Systolic & Diastolic Heart Failure: Acute Chronic Acute on Chronic Heart Failure Unable to Determine Other, please specify __I do not see diagnosis of heart failure. This was documented by nursing and pulled through. MTDD
[2017-12-25 16:39] LABS: Glucose,Whole Blood 103 mg/dL (75-99)
[2017-12-25] MEDS: SODIUM CHLORIDE 0.9% 1,000 ML IV SCH (16:45)
[2017-12-25] MEDS ORDERED: ceFAZolin IN SWFI 2 GM/20 ML SYRINGE IVP SCH (18:00)
[2017-12-25] MEDS: traZODone HCL 100 MG TAB PO SCH (20:17)
[2017-12-25] MEDS: ceFAZolin IN SWFI 2 GM/20 ML SYRINGE IVP SCH (20:20)
[2017-12-25 20:33] LABS: Glucose,Whole Blood 182 mg/dL (75-99)
[2017-12-25] MEDS: CYCLOBENZAPRINE 10 MG TAB PO PRN (20:50)
[2017-12-25] MEDS: ZOLPIDEM 10 MG TAB PO PRN (20:50)
[2017-12-25] MEDS: INSULIN DETEMIR 100 UNIT/ML 10 ML VIAL SQ SCH (21:52)
[2017-12-25] MEDS: TRIAMCINOLONE ACET 0.1% OINTMENT 15 GM TUBE TOPICAL SCH (21:53)
--- NOTE | 2017-12-25 22:37 | P.PN ---
Subjective Progress Note Date: 12/25/17 Principal diagnosis: Acute CVA with worsening left-sided weakness Ms. Rausch is a 57-year-old female with a past medical history of type 2 diabetes mellitus, hypertension, stroke and the past with mild left-sided weakness, chronic bilateral lower extremity edema due to chronic venous stasis, coming to the hospital with a chief complaint of weakness and tingling sensation of her left upper extremity for the past 2 days. Patient states that she has been having weakness of her upper and lower extremity for the past 1 week but for the past couple of days it's been more severe that she is not able to hold stuff with her left hand. Patient states that she has history of mini stroke with some left-sided weakness in the past 3 months back. But this episode has been going on for the past 1 week and she thought her weakness would resolve by itself and so did not seek medical attention. As her weakness has not resolved and she started to have tingling and numbness in her left upper extremity and she also noticed some weakness of her left lower extremity that prompted her to come to the hospital. In the ED patient had a CAT scan of the head that was negative for acute intracranial process. Neurology has been consulted. Patient is undergoing stroke workup with echocardiogram, carotid Doppler, MRI of the brain and cervical spine. On 12/24/2017 the patient is sitting up in a chair besides the bed. Her sister is at the bedside. Patient states that she still has weakness of her left upper and lower extremity. Patient denies having any chest pain or difficulty in breathing or palpitations. No cough no fever chills or rigors. No abdominal pain nausea vomiting or diarrhea. No dysuria or hematuria. On 12/25/2017 Patient is able to sit in the chair. Patient is still complaining of left- sided weakness. Speech and swallow evaluation is pending. Echo reporting no hemodynamic significant stenosis .Echo reporting normal LV function, EF 55-60%. MRI showed no evidence of acute CVA. MRI of the cervical spine was also done. Spinal stenosis but no evidence of cord compression. Moderate to severe pansinusitis and also found have mastoiditis. Continued on PT OT. Denied any complaints of chest pain or shortness of breath. No nausea vomiting or abdominal pain. No diarrhea or dysuria. Wound cultures. Growing staph aureus. ID is following. Patient was started on cefazolin. Current medications reviewed Objective - Vital Signs Vital signs: Vital Signs Temp 97.4 F L 12/25/17 19:53 Pulse 74 12/25/17 20:00 Resp 17 12/25/17 20:00 BP 121/70 12/25/17 19:53 Pulse Ox 95 12/25/17 19:53 Intake & Output 12/25/17 12/25/17 12/26/17 06:59 18:59 06:59 Intake Total 10 790 10 Output Total 100 Balance 10 690 10 Weight 105 kg Intake: IV 10 10 0.9 10 10 Intake, IV Titration 10 Amount Sodium Chloride 0.9% 1, 10 000 ml @ 20 mls/hr IV . Q24H [facility] Rx#:[id number] Oral 780 Output: Urine 100 Other: Voiding Method Toilet Toilet Toilet Diaper Diaper Diaper # Voids 2 1 # Bowel Movements 1 - Exam GENERAL: The patient is alert and oriented x3, not in any acute distress. Well developed, well nourished. HEENT: Pupils are round and equally reacting to light. EOMI. No scleral icterus. No conjunctival pallor. Normocephalic, atraumatic. No pharyngeal erythema. No thyromegaly. CARDIOVASCULAR: S1 and S2 present. No murmurs, rubs, or gallops. PULMONARY: Chest is clear to auscultation, no wheezing or crackles. ABDOMEN: Soft, nontender, nondistended, normoactive bowel sounds. MUSCULOSKELETAL: No joint swelling or deformity. EXTREMITIES: Bilateral pitting edema. Chronic venous stasis. Right foot third toe amputation, Small wound at base of right fourth toe, right lateral tibia ulcer with serous drainage. Weaker DP pulse. NEUROLOGICAL: No facial droop.Power is 3 out of 5 in the left upper and lower extremities. Right upper and lower extremity power is 4 out of 5. SKIN: Patient has bilateral lower extremity venous stasis dermatosis and edema - Labs CBC & Chem 7: 12/24/17 06:13 12/24/17 06:13 Labs: Abnormal Lab Results - Last 24 Hours (Table) 12/25/17 12/25/17 12/25/17 Range/Units 04:34 06:05 11:04 POC Glucose (mg/dL) 65 L 69 L 134 H (75-99) mg/dL 12/25/17 12/25/17 Range/Units 16:36 20:25 POC Glucose (mg/dL) 103 H 182 H (75-99) mg/dL Microbiology - Last 24 Hours (Table) 12/24/17 08:42 Gram Stain - Preliminary Leg - Right Wound Culture - Preliminary Presumptive Staph aureus Assessment and Plan Assessment: Left upper and lower extremity weakness - most likely secondary to acute CVA Cervical multilevel degenerative disc disease and mild to moderate spinal stenosis at C3-C4 level Type 2 diabetes mellitus Hypertension History of prior stroke with mild left-sided weakness Chronic low back pain Chronic bilateral lower extremity edema with venous stasis dermatitis Former smoker quit 2 months back Obesity with BMI of 32 Chronic debility Chronic right foot diabetic ulcer. On antibiotics. With wound cultures showing staph aureus. Plan: Continue on current medication regime, monitoring and symptomatic treatment. Brain MRI showed no evidence of acute CVA.. PT/OT, potential subacute rehab at discharge. Speech therapy consulted as patient complains of difficulty swallowing, food, drink "hurts going down, once swallowed". Wound care, antibiotics as per infectious disease. Follow closely with neurology. Discharge planning in progress for tomorrow to subacute rehab. Time with Patient: Greater than 30
--- NOTE | 2017-12-25 22:58 | P.PN ---
Subjective Progress Note Date: 12/25/17 This is a 57-year-old female patient presented to the hospital on December 22 for left upper and lower extremity weakness. She states she had a stroke in the past but all symptoms resolved. Regarding diabetic ulcer, patient states that [facility] the care of Dr. Moraes for left leg stasis ulcers. It appears her last visit was in January 2017. Patient states that her PCP sent her to the [facility] vein clinic and had laser surgery done on her veins. She is not sure why because she denies having any pain or varices. She complains of not feeling well for the past week with generalized weakness and no energy. She states her blood sugars have been running normal and that her last hemoglobin A1c was at 7. She states the wounds on her right have been worsening and more painful. She is unable to see the wound on the right lateral leg. She has had a previous amputation of the third toe. She recently quit smoking 2 months ago. 12/25/2017 patient is feeling slightly better. However she had significant hypoglycemia overnight, she does not recall having those troubles in the past although she is diabetic. The left leg feels slightly better but still has some tenderness. Objective - Vital Signs Vital signs: Vital Signs Temp 97.4 F L 12/25/17 19:53 Pulse 74 12/25/17 20:00 Resp 17 12/25/17 20:00 BP 121/70 12/25/17 19:53 Pulse Ox 95 12/25/17 19:53 Intake & Output 12/25/17 12/25/17 12/26/17 06:59 18:59 06:59 Intake Total 10 790 10 Output Total 100 Balance 10 690 10 Weight 105 kg Intake: IV 10 10 0.9 10 10 Intake, IV Titration 10 Amount Sodium Chloride 0.9% 1, 10 000 ml @ 20 mls/hr IV . Q24H [facility] Rx#:[id number] Oral 780 Output: Urine 100 Other: Voiding Method Toilet Toilet Toilet Diaper Diaper Diaper # Voids 2 1 # Bowel Movements 1 - Exam Gen: This is a obese 57-year-old female. She is sitting in a chair with legs in a dependent position. She appears to be in no acute distress. HEENT: Head is atraumatic, normocephalic. Pupils equal, round. Sclerae is anicteric. Conjunctiva pink. Mucous membranes of the mouth are moist. NECK: Supple. No JVD. No lymphadenopathy. No thyromegaly. LUNGS: Clear to auscultation. No wheezes or rhonchi. No intercostal retractions. HEART: Regular rate and rhythm. No murmur. ABDOMEN: Soft. Bowel sounds are present. No masses. No tenderness. EXTREMITIES: Right foot has a noted third toe amputation. There is small wound at the base of the fourth toe and top of the first with callus formation. There is a diabetic ulcer on the right lateral tib-fib area. Serous drainage, foul order. Dorsalis pedis is weak bilaterally, chronic dark skin changes to bilateral lower extremities. NEUROLOGICAL: Patient is awake, alert and oriented x3. Right hand coding quality analyst weak on the left compared to right. - Labs CBC & Chem 7: 12/24/17 06:13 12/24/17 06:13 Labs: Abnormal Lab Results - Last 24 Hours (Table) 12/25/17 12/25/17 12/25/17 Range/Units 04:34 06:05 11:04 POC Glucose (mg/dL) 65 L 69 L 134 H (75-99) mg/dL 12/25/17 12/25/17 Range/Units 16:36 20:25 POC Glucose (mg/dL) 103 H 182 H (75-99) mg/dL Microbiology - Last 24 Hours (Table) 12/24/17 08:42 Gram Stain - Preliminary Leg - Right Wound Culture - Preliminary Presumptive Staph aureus Laboratory Results WBC 7.9 k/uL (3.8-10.6) 12/24/17 06:13 RBC 3.97 m/uL (3.80-5.40) 12/24/17 06:13 Hgb 12.5 gm/dL (11.4-16.0) 12/24/17 06:13 Hct 39.1 % (34.0-46.0) 12/24/17 06:13 MCV 98.6 fL (80.0-100.0) 12/24/17 06:13 MCH 31.4 pg (25.0-35.0) 12/24/17 06:13 MCHC 31.8 g/dL (31.0-37.0) 12/24/17 06:13 RDW 15.6 % (11.5-15.5) H 12/24/17 06:13 Plt Count 340 k/uL (150-450) 12/24/17 06:13 Neutrophils % 53 % 12/24/17 06:13 Lymphocytes % 34 % 12/24/17 06:13 Monocytes % 6 % 12/24/17 06:13 Eosinophils % 4 % 12/24/17 06:13 Basophils % 1 % 12/24/17 06:13 Neutrophils # 4.2 k/uL (1.3-7.7) 12/24/17 06:13 Lymphocytes # 2.7 k/uL (1.0-4.8) 12/24/17 06:13 Monocytes # 0.5 k/uL (0-1.0) 12/24/17 06:13 Eosinophils # 0.3 k/uL (0-0.7) 12/24/17 06:13 Basophils # 0.0 k/uL (0-0.2) 12/24/17 06:13 Macrocytosis Slight 12/24/17 06:13 PT 10.2 sec (9.0-12.0) 12/22/17 11:20 INR 1.0 (<1.2) 12/22/17 11:20 APTT 23.5 sec (22.0-30.0) 12/22/17 11:20 Sodium 142 mmol/L (137-145) 12/24/17 06:13 Potassium 4.0 mmol/L (3.5-5.1) 12/24/17 06:13 Chloride 107 mmol/L (98-107) 12/24/17 06:13 Carbon Dioxide 26 mmol/L (22-30) 12/24/17 06:13 Anion Gap 9 mmol/L 12/24/17 06:13 BUN 41 mg/dL (7-17) H 12/24/17 06:13 Creatinine 0.72 mg/dL (0.52-1.04) 12/24/17 06:13 Est GFR (CKD-EPI)AfAm >90 (>60 ml/min/1.73 sqM) 12/24/17 06:13 Est GFR (CKD-EPI)NonAf >90 (>60 ml/min/1.73 sqM) 12/24/17 06:13 Glucose 97 mg/dL (74-99) 12/24/17 06:13 POC Glucose (mg/dL) 182 mg/dL (75-99) H 12/25/17 20:25 POC Glu Director [employer] ID Nathalie Mendoza 12/25/17 20:[address] Glu mg/dL 154 12/23/17 05:56 Hemoglobin A1c 7.0 % (4.0-6.0) H 12/23/17 05:56 Calcium 9.2 mg/dL (8.4-10.2) 12/24/17 06:13 Magnesium 1.8 mg/dL (1.6-2.3) 12/22/17 11:20 Total Bilirubin 0.6 mg/dL (0.2-1.3) 12/22/17 11:20 AST 27 U/L (14-36) 12/22/17 11:20 ALT 19 U/L (9-52) 12/22/17 11:20 Alkaline Phosphatase 80 U/L (38-126) 12/22/17 11:20 Total Creatine Kinase 31 U/L (30-135) 12/22/17 11:20 CK-MB (CK-2) 0.5 ng/mL (0.0-2.4) 12/22/17 11:20 CK-MB (CK-2) Rel Index 1.6 12/22/17 11:20 Troponin I <0.012 ng/mL (0.000-0.034) 12/22/17 23:24 Total Protein 8.4 g/dL (6.3-8.2) H 12/22/17 11:20 Albumin 4.3 g/dL (3.5-5.0) 12/22/17 11:20 Triglycerides 130 mg/dL (<150) 12/22/17 11:20 Cholesterol 231 mg/dL (<200) H 12/22/17 11:20 LDL Cholesterol, Calc 173 mg/dL (0-99) H 12/22/17 11:20 HDL Cholesterol 32 mg/dL (40-60) L 12/22/17 11:20 Microbiology 12/24/17 08:42 Leg - Right Gram Stain - Preliminary 12/24/17 08:42 Leg - Right Wound Culture - Preliminary Presumptive Staph aureus Microbiology 12/24/17 08:42 Leg - Right Gram Stain - Preliminary 12/24/17 08:42 Leg - Right Wound Culture - Preliminary Presumptive Staph aureus Assessment and Plan (1) Cerebrovascular accident Current Visit: Yes Status: Acute Code(s): I63.9 - CEREBRAL INFARCTION, UNSPECIFIED SNOMED Code(s): 415003213 (2) Cervical spinal stenosis Current Visit: Yes Status: Acute Code(s): M48.02 - SPINAL STENOSIS, CERVICAL REGION SNOMED Code(s): 16569107 (3) Cellulitis, leg Narrative/Plan: reveals the patient has had some improvement since admission was continue to have ongoing swelling erythema and some ulceration the left leg. She is denying fevers or chills. At this time cultures are in process blood and wound. Local wound care with Silvadene was applied to the lower extremities wrap with gauze and an Cody wrap. Elevate as she tolerates. We'll give him with the left leg we'll initiate cefazolin for now while awaiting culture results. She was she's been having some intervention from the pain clinic [facility] in one procedure per leg so far. Multivitamin with zinc is added we' ll ensure protein is adequate. Local wound care with Silvadene and antibiotic therapy with Ancef utilize for now until we have further data no history of MRSA and consequently the current staph seems to be less likely MRSA. Clinical legs while she is at rest continue with good protein intake. Current Visit: No Status: Acute Code(s): L03.119 - CELLULITIS OF UNSPECIFIED PART OF LIMB SNOMED Code(s): 654263116
[2017-12-26] MEDS: ceFAZolin IN SWFI 2 GM/20 ML SYRINGE IVP SCH ×3 (04:43→22:52)
[2017-12-26 05:49] LABS: Glucose,Whole Blood 111 mg/dL (75-99)
[2017-12-26] MEDS: INSULIN ASPART 100 UNIT/ML 1 ML 10 ML VIAL SQ SCH ×4 (05:53→21:53)
[2017-12-26] MEDS: LINAGLIPTIN PO SCH (08:09)
[2017-12-26] MEDS: EMPAGLIFLOZIN PO SCH (08:09)
[2017-12-26] MEDS: Buprenorphine Hcl [Subutex] 8 MG SL SCH ×4 (08:09→23:51)
[2017-12-26] MEDS: FOLIC ACID 1 MG TAB PO SCH (08:10)
[2017-12-26] MEDS: MELOXICAM 7.5 MG TAB PO SCH (08:10)
[2017-12-26] MEDS: ASPIRIN 325 MG TAB PO SCH (08:10)
[2017-12-26] MEDS: HEPARIN SODIUM,PORCINE 5,000 UNIT/ML 1 ML VIAL SQ SCH ×2 (08:10→16:27)
[2017-12-26] MEDS: LISINOPRIL 20 MG TAB PO SCH ×2 (08:10→21:53)
[2017-12-26] MEDS: PREGABALIN 100 MG CAP PO SCH ×2 (08:11→21:53)
[2017-12-26] MEDS: FUROSEMIDE 20 MG TAB PO SCH (08:11)
[2017-12-26] MEDS: THIAMINE 100 MG TAB PO SCH (08:11)
[2017-12-26] MEDS: LORATADINE 10 MG TAB PO SCH (08:11)
[2017-12-26] MEDS: PANTOPRAZOLE 40 MG TABLET PO SCH (08:11)
[2017-12-26] MEDS: metFORMIN 500 MG TAB PO SCH ×2 (08:11→21:53)
[2017-12-26] MEDS: MULTIVITAMINS, THERA 1 EACH TAB PO SCH (08:11)
[2017-12-26] MEDS: TRIAMCINOLONE ACET 0.1% OINTMENT 15 GM TUBE TOPICAL SCH (08:15)
[2017-12-26 11:13] LABS: Glucose,Whole Blood 149 mg/dL (75-99)
--- NOTE | 2017-12-26 13:14 | P.DS ---
Addendum entered and electronically signed by Marisa Khan NP-C 12/27/17 15: 50: Addendum for 12/27/2017 patient is being discharged today to [facility] inpatient rehab in a stable condition with guarded prognosis. No overnight events.VSS. Exam GENERAL: The patient is alert and oriented x3, not in any acute distress. CARDIOVASCULAR: S1 and S2 present. No murmurs, rubs, or gallops. PULMONARY: Chest is clear to auscultation, no wheezing or crackles. ABDOMEN: Soft, nontender, nondistended, normoactive bowel sounds. EXTREMITIES: Bilateral pitting edema. Chronic venous stasis. Right lower extremity Cody wrapped dressing clean dry and intact. NEUROLOGICAL: No facial droop.Power is 3 out of 5 in the left upper and lower extremities. Right upper and lower extremity power is 4 out of 5. SKIN: Patient has bilateral lower extremity venous stasis dermatosis and edema The impression and plan of care has been dictated as directed. : I performed a history and examination of this patient, discussed the same with the dictator. I agree with the dictator's note ,documented as a scribe. Any additional findings or plans will be noted. Time taken: 35 minutes Addendum entered and electronically signed by Marisa Khan NP-C 12/27/17 15: 44: Addendum for date of 12/26/2017, change to a progress note - Exam GENERAL: The patient is alert and oriented x3, not in any acute distress. Well developed, well nourished. HEENT: Pupils are round and equally reacting to light. EOMI. No scleral icterus. No conjunctival pallor. Normocephalic, atraumatic. No pharyngeal erythema. No thyromegaly. CARDIOVASCULAR: S1 and S2 present. No murmurs, rubs, or gallops. PULMONARY: Chest is clear to auscultation, no wheezing or crackles. ABDOMEN: Soft, nontender, nondistended, normoactive bowel sounds. MUSCULOSKELETAL: No joint swelling or deformity. EXTREMITIES: Bilateral pitting edema. Chronic venous stasis. Right foot Cody wrap clean dry and intact. Weaker NEUROLOGICAL: No facial droop.Power is 3 out of 5 in the left upper and lower extremities. Right upper and lower extremity power is 4 out of 5. SKIN: Patient has bilateral lower extremity venous stasis dermatosis and edema Plan: Continue current medication regime ,monitoring and symptomatic treatment. PT/OT. Discharge planning in progress for inpatient rehab pending insurance authorization. The impression and plan of care has been dictated as directed. : I performed a history and examination of this patient, discussed the same with the dictator. I agree with the dictator's note ,documented as a scribe. Any additional findings or plans will be noted. Addendum entered and electronically signed by Marisa Khan NP-C 12/27/17 12: 09: patient can tolerate 3 hours of therapy per day for inpatient rehab. Original Note: Providers Date of admission: 12/22/17 13:49 Expected date of discharge: 12/26/17 Attending physician: Johnie Walls Consults: 12/22/17 13:45 Consult Physician Routine Consulting Provider: Sheryl Hensley Consult Reason/Comments: CVA 3 days ago Do you want consulting provider notified?: Yes 12/23/17 10:48 Consult Physician Routine Consulting Provider: Josue Armenta Consult Reason/Comments: Diabetic Ulcers Do you want consulting provider notified?: Yes 12/24/17 11:00 Consult Physician Routine Consulting Provider: Darien Craig Consult Reason/Comments: eval for inpatient rehab Do you want consulting provider notified?: Yes Primary care physician: Dora Street Hospital Course: Final Diagnoses: Left upper and lower extremity weakness - most likely secondary to acute CVA Cervical multilevel degenerative disc disease and mild to moderate spinal stenosis at C3-C4 level Type 2 diabetes mellitus Hypertension History of prior stroke with mild left-sided weakness Chronic low back pain Chronic bilateral lower extremity edema with venous stasis dermatitis Former smoker quit 2 months back Obesity with BMI of 32 Chronic debility Chronic right foot diabetic ulcer. On antibiotics. With wound cultures showing staph aureus. Hospital Course:Ms. Rausch is a 57-year-old female with a past medical history of type 2 diabetes mellitus, hypertension, stroke and the past with mild left- sided weakness, chronic bilateral lower extremity edema due to chronic venous stasis, coming to the hospital with a chief complaint of weakness and tingling sensation of her left upper extremity for the past 2 days. Patient states that she has been having weakness of her upper and lower extremity for the past 1 week but for the past couple of days it's been more severe that she is not able to hold stuff with her left hand. Patient states that she has history of mini stroke with some left-sided weakness in the past 3 months back. But this episode has been going on for the past 1 week and she thought her weakness would resolve by itself and so did not seek medical attention. As her weakness has not resolved and she started to have tingling and numbness in her left upper extremity and she also noticed some weakness of her left lower extremity that prompted her to come to the hospital. In the ED patient had a CAT scan of the head that was negative for acute intracranial process. Neurology has been consulted. Patient is undergoing stroke workup with echocardiogram, carotid Doppler, MRI of the brain and cervical spine. Evaluated bi [facility], Dr. Craig, Neurology. Neuro work-up completed with stroke work- up unremarkable.MRI of the brain which showed no acute abnormalities.'s had an MRI of the cervical spine which showed cervical spinal stenosis, degenerative disc disease without cord compression, and anterolisthesis. OP Orhtopedic F/U. Cleared by all consults for discharge. Patient is being discharged to [facility] IP Rehab in a stable consition with a guarded prognosis. Exam GENERAL: The patient is alert and oriented x3, not in any acute distress. CARDIOVASCULAR: S1 and S2 present. No murmurs, rubs, or gallops. PULMONARY: Chest is clear to auscultation, no wheezing or crackles. ABDOMEN: Soft, nontender, nondistended, normoactive bowel sounds. EXTREMITIES: Bilateral pitting edema. Chronic venous stasis. Right foot third toe amputation, Small wound at base of right fourth toe, right lateral tibia ulcer with serous drainage. Weaker DP pulse. NEUROLOGICAL: No facial droop.Power is 3 out of 5 in the left upper and lower extremities. Right upper and lower extremity power is 4 out of 5. SKIN: Patient has bilateral lower extremity venous stasis dermatosis and edema The impression and plan of care has been dictated as directed. : I performed a history and examination of this patient, discussed the same with the dictator. I agree with the dictator's note ,documented as a scribe. Any additional findings or plans will be noted. Time taken: 35 min Patient Condition at Discharge: Stable Plan - Discharge Summary Discharge Rx Participant: No New Discharge Prescriptions: New Aspirin 325 mg PO DAILY tab Atorvastatin [Lipitor] 20 mg PO HS tab Insulin Glargine [Lantus] 25 unit SQ HS #1 vial INSULIN LISPRO (HumaLOG) [humaLOG] 0 unit SQ ACHS #1 vial Lisinopril [Zestril] 40 mg PO BID tab Loratadine [Claritin] 10 mg PO DAILY tab Meclizine [Antivert] 12.5 mg PO TID PRN tab PRN Reason: Vertigo Multivitamins, Thera [Multivitamin (formulary)] 1 each PO DAILY@1200 tab SILVER sulfADIAZINE CREAM [Silvadene Cream] 1 applic TOPICAL 2100 applic Triamcinolone 0.1% Ointment [Kenalog 0.1% Ointment] 1 applic TOPICAL BID applic Continue Amitriptyline HCl [Elavil] 100 mg PO HS metFORMIN HCL [Glucophage] 500 mg PO BID Pregabalin [Lyrica] 100 mg PO BID Nitroglycerin Sl Tabs [Nitrostat] 0.4 mg SUBLINGUAL Q5M PRN PRN Reason: Chest Pain Furosemide [Lasix] 20 mg PO DAILY Empagliflozin/Linagliptin [Glyxambi 10 mg-5 mg Tablet] 1 tab PO DAILY traZODone HCL [Desyrel] 100 mg PO HS Pantoprazole Sodium [Protonix] 40 mg PO DAILY Cyclobenzaprine [Flexeril] 10 mg PO TID PRN PRN Reason: Pain Folic Acid 1 mg PO DAILY@1200 #30 tab Thiamine [Vitamin B-1] 100 mg PO DAILY@1200 #30 tab Buprenorphine HCl [Subutex] 8 mg SL QID Zolpidem [Ambien] 10 mg PO HS PRN #3 tab PRN Reason: sleep Discontinued Nabumetone [Relafen] 500 mg PO BID Enalapril Maleate [Vasotec] 20 mg PO BID Diazepam [Valium] 5 - 10 mg PO BID PRN PRN Reason: Anxiety/Spasms Insulin NPH Human Isophane [humuLIN N] 98 unit SQ HS #1 Nitrofurantoin Macrocrystal [Macrodantin] 100 mg PO BID Discharge Medication List Amitriptyline HCl [Elavil] 100 mg PO HS 12/15/13 [History] metFORMIN HCL [Glucophage] 500 mg PO BID 12/15/13 [History] Cyclobenzaprine [Flexeril] 10 mg PO TID PRN 03/08/17 [History] Empagliflozin/Linagliptin [Glyxambi 10 mg-5 mg Tablet] 1 tab PO DAILY 03/08/17 [ History] Furosemide [Lasix] 20 mg PO DAILY 03/08/17 [History] Nitroglycerin Sl Tabs [Nitrostat] 0.4 mg SUBLINGUAL Q5M PRN 03/08/17 [History] Pantoprazole Sodium [Protonix] 40 mg PO DAILY 03/08/17 [History] Pregabalin [Lyrica] 100 mg PO BID 03/08/17 [History] traZODone HCL [Desyrel] 100 mg PO HS 03/08/17 [History] Folic Acid 1 mg PO DAILY@1200 #30 tab 03/11/17 [Rx] Thiamine [Vitamin B-1] 100 mg PO DAILY@1200 #30 tab 03/11/17 [Rx] Buprenorphine HCl [Subutex] 8 mg SL QID 12/22/17 [History] Aspirin 325 mg PO DAILY tab 12/26/17 [Rx] Atorvastatin [Lipitor] 20 mg PO HS tab 12/26/17 [Rx] INSULIN LISPRO (HumaLOG) [humaLOG] 0 unit SQ ACHS #1 vial 12/26/17 [Rx] Insulin Glargine [Lantus] 25 unit SQ HS #1 vial 12/26/17 [Rx] Lisinopril [Zestril] 40 mg PO BID tab 12/26/17 [Rx] Loratadine [Claritin] 10 mg PO DAILY tab 12/26/17 [Rx] Meclizine [Antivert] 12.5 mg PO TID PRN tab 12/26/17 [Rx] Multivitamins, Thera [Multivitamin (formulary)] 1 each PO DAILY@1200 tab [Rx] SILVER sulfADIAZINE CREAM [Silvadene Cream] 1 applic TOPICAL 2100 applic [Rx] Triamcinolone 0.1% Ointment [Kenalog 0.1% Ointment] 1 applic TOPICAL BID applic 12/26/17 [Rx] Zolpidem [Ambien] 10 mg PO HS PRN #3 tab 12/26/17 [Rx] Follow up Appointment(s)/Referral(s): Jad John MD [Primary Care Provider] - 1 Week (after dc from rehab) Josue Armenta MD [STAFF PHYSICIAN] - 1 Week Fawn Colon MD [STAFF PHYSICIAN] - 3 Days (while at rehab) Darien Craig MD [STAFF PHYSICIAN] - 3 Days Antonette Hensley MD [STAFF PHYSICIAN] - 2 Weeks [facility] [Provider Group] - 1 Week Activity/Diet/Wound Care/Special Instructions: [facility] IP rehab antibx/wound care as per ID cbc,bmp in 3 days
[2017-12-26] MEDS: SODIUM CHLORIDE 0.9% 1,000 ML IV SCH (14:00)
[2017-12-26 16:22] LABS: Glucose,Whole Blood 125 mg/dL (75-99)
[2017-12-26 20:39] LABS: Glucose,Whole Blood 207 mg/dL (75-99)
[2017-12-26] MEDS ORDERED: ATORVASTATIN 20 MG TAB PO SCH (21:00)
[2017-12-26] MEDS: traZODone HCL 100 MG TAB PO SCH (21:53)
[2017-12-26] MEDS: ZOLPIDEM 10 MG TAB PO PRN (22:14)
[2017-12-27] MEDS: HEPARIN SODIUM,PORCINE 5,000 UNIT/ML 1 ML VIAL SQ SCH ×3 (00:51→17:40)
[2017-12-27] MEDS: TRIAMCINOLONE ACET 0.1% OINTMENT 15 GM TUBE TOPICAL SCH ×2 (00:51→10:16)
[2017-12-27] MEDS: INSULIN DETEMIR 100 UNIT/ML 10 ML VIAL SQ SCH (00:51)
[2017-12-27] MEDS: ceFAZolin IN SWFI 2 GM/20 ML SYRINGE IVP SCH ×2 (06:02→15:05)
[2017-12-27 07:12] LABS: Basophils % (A) 0 %; Eosinophils # (A) 0.3 k/uL (0-0.7); Eosinophils % (A) 4 %; HCT 39.6 % (34.0-46.0); HGB 12.4 gm/dL (11.4-16.0); Lymphocytes % (A) 29 %; MCH 30.9 pg (25.0-35.0); MCHC 31.4 g/dL (31.0-37.0); MCV 98.2 fL (80.0-100.0); Mean Platelet Volume 7.8; Monocytes # (A) 0.4 k/uL (0-1.0); Monocytes % (A) 6 %; Neutrophils # (A) 4.1 k/uL (1.3-7.7); Neutrophils % (A) 60 %; Platelet Count 321 k/uL (150-450); RBC 4.03 m/uL (3.80-5.40); RDW 15.1 % (11.5-15.5); WBC 6.9 k/uL (3.8-10.6)
[2017-12-27 07:23] LABS: Glucose,Whole Blood 160 mg/dL (75-99)
[2017-12-27 07:28] LABS: Anion Gap 9 mmol/L; Blood Urea Nitrogen 32 mg/dL (7-17); Calcium 9.3 mg/dL (8.4-10.2); Carbon Dioxide 26 mmol/L (22-30); Chloride 105 mmol/L (98-107); Glucose 154 mg/dL (74-99); Sodium 140 mmol/L (137-145)
[2017-12-27] MEDS: FOLIC ACID 1 MG TAB PO SCH (10:12)
[2017-12-27] MEDS: PREGABALIN 100 MG CAP PO SCH (10:12)
[2017-12-27] MEDS: FUROSEMIDE 20 MG TAB PO SCH (10:12)
[2017-12-27] MEDS: MULTIVITAMINS, THERA 1 EACH TAB PO SCH (10:13)
[2017-12-27] MEDS: PANTOPRAZOLE 40 MG TABLET PO SCH (10:13)
[2017-12-27] MEDS: LISINOPRIL 20 MG TAB PO SCH (10:13)
[2017-12-27] MEDS: ASPIRIN 325 MG TAB PO SCH (10:13)
[2017-12-27] MEDS: metFORMIN 500 MG TAB PO SCH (10:13)
[2017-12-27] MEDS: LORATADINE 10 MG TAB PO SCH (10:13)
[2017-12-27] MEDS: Buprenorphine Hcl [Subutex] 8 MG SL SCH ×2 (10:15→15:01)
[2017-12-27] MEDS: EMPAGLIFLOZIN PO SCH (10:15)
[2017-12-27] MEDS: LINAGLIPTIN PO SCH (10:15)
[2017-12-27] MEDS: INSULIN ASPART 100 UNIT/ML 1 ML 10 ML VIAL SQ SCH ×3 (10:16→17:41)
[2017-12-27 12:14] LABS: Glucose,Whole Blood 156 mg/dL (75-99)
[2017-12-27 13:31] VITALS: RESP 16
[2017-12-27 14:45] VITALS: BP 120/73; PULSE 79; TEMP 98.2
[2017-12-27] MEDS: THIAMINE 100 MG TAB PO SCH (15:05)
[2017-12-27] MEDS: SODIUM CHLORIDE 0.9% 1,000 ML IV SCH (15:06)
== END 2017-12-27 18:01 | DRG 65 ==
LOC: EC 10:45 → 3SCARD 13:49 → 4SSUR 12-26 21:08
PROVIDERS: ADMIT Internal Medicine; ATTEND Internal Medicine
DX: I63.9 Cerebral infarction, unspecified (principal); G81.94 Hemiplegia, unspecified affecting left nondominant side; L03.119 Cellulitis of unspecified part of limb; R29.701 NIHSS score 1; E66.9 Obesity, unspecified; M50.31 Other cervical disc degeneration, high cervical region; I83.12 Varicose veins of left lower extremity with inflammation; I83.11 Varicose veins of right lower extremity with inflammation; E11.621 Type 2 diabetes mellitus with foot ulcer; Z68.32 Body mass index [BMI] 32.0-32.9, adult; B95.61 Methicillin susceptible Staphylococcus aureus infection as the cause of diseases classified elsewhere; E11.319 Type 2 diabetes mellitus with unspecified diabetic retinopathy without macular edema; E11.40 Type 2 diabetes mellitus with diabetic neuropathy, unspecified; E11.649 Type 2 diabetes mellitus with hypoglycemia without coma; H35.30 Unspecified macular degeneration; M48.02 Spinal stenosis, cervical region; I10 Essential (primary) hypertension; F41.9 Anxiety disorder, unspecified; H70.90 Unspecified mastoiditis, unspecified ear; R53.81 Other malaise; J32.4 Chronic pansinusitis; Z79.899 Other long term (current) drug therapy; Z87.891 Personal history of nicotine dependence; Z74.01 Bed confinement status; Z79.82 Long term (current) use of aspirin; Z79.4 Long term (current) use of insulin; Z79.1 Long term (current) use of non-steroidal anti-inflammatories (NSAID); Z79.02 Long term (current) use of antithrombotics/antiplatelets; Z83.3 Family history of diabetes mellitus; Z89.429 Acquired absence of other toe(s), unspecified side; Z90.710 Acquired absence of both cervix and uterus
CPT/HCPCS: 36415; 70450; 70551; 71046; 72141; 80048; 80053; 80061; 82550; 82553; 83036; 83735; 84484; 85025; 85610; 85730; 87070; 87077; 87186; 87205; 93005; 93306; 93880; 99285